=== PATIENT | male | born 1935 | race Caucasian/White ===

== ENCOUNTER 2018-08-02 16:36 | Inpatient (IN) | payer MEDICARE, OTHER, SELFPAY ==
[2018-08-02] VITALS (10 sets, daily range): BP systolic 159–185; BP diastolic 56–92; PULSE 60–70; RESP 15–21; TEMP 36.2–37.1; O2SAT 93–100; BMI 27.4; BMI 27.5; BMI 26.2
--- NOTE | 2018-08-02 16:47 | EKG12_ITS ---
Test Reason : Blood Pressure : / mmHG Vent. Rate : 062 BPM Atrial Rate : 062 BPM P-R Int : 112 ms QRS Dur : 168 ms QT Int : 492 ms P-R-T Axes : 062 228 082 degrees QTc Int : 499 ms Atrial-sensed ventricular-paced rhythm Abnormal ECG Confirmed by KELLIE KC, CELESTE ([id number]), editor city ROBERT URIBE ([id number]) on 08/04/2018 1:27:07 PM Referred By: ASPEN Confirmed By:CELESTE HOPKINS MD
--- NOTE | 2018-08-02 16:47 | CT_ITS ---
STUDY: CT BRAIN WITHOUT CONTRAST REASON FOR EXAM: Male, 83 years old. Weakness RADIATION DOSAGE (If Supplied By Facility): CTDIvol = ( 44.99 ) mGy, DLP = ( 762.36 ) mGycm TECHNIQUE: Transaxial CT imaging of the brain was performed without administration of intravenous contrast material. Coronal and sagittal 2-D MPR Individualized dose optimization techniques were used for this CT. COMPARISON: None. FINDINGS: There is mild mucoperiosteal thickening at the base of the left maxillary sinus, paranasal sinuses otherwise clear. Mastoid air cells and middle ear cavities clear. Craniofacial osseous structures normal. Extra cranial soft tissues including the orbital contents exhibit no acute process. Moderate symmetric expansion of lateral ventricles and mild symmetric expansion of extra-axial spaces consistent with age-related cerebral atrophy with mild and partially confluent chronic low-density changes in the periventricular white matter consistent with chronic microvascular ischemic disease with no evidence of acute bleed, mass or mass effect nor any specific evidence of acute territorial infarct. CT/Brain/Head without Contrast IMPRESSION: No acute intracranial process. Electronically Signed: Dustin Sandoval, at 17:44 EDT Tel , Service support ,
[2018-08-02 16:51] LABS: Bedside Glucose 93 mg/dL (70-110)
--- NOTE | 2018-08-02 17:25 | RAD_ITS ---
STUDY: X-RAY CHEST REASON FOR EXAM: Male, 83 years old. Shortness of breath. Broken ribs on the right side. TECHNIQUE: AP upright portable chest COMPARISON: None. FINDINGS: Left pectoral 3-lead AICD device. Low inspiratory volumes with elevated right hemidiaphragm and evidence of respiratory splinting on the right secondary to at least 4 mildly displaced rib fractures. Rib fractures are visible at the of the 6th through 9th ribs laterally. There is a small right effusion with moderate right lung base atelectasis. There is no pneumothorax. There are no infiltrates of the left lung. There is mild cardiomegaly. Unremarkable mediastinal silhouette, faye, pleural margins. No acute upper abdominal process. RAD/Chest 1 View IMPRESSION: Multiple right-sided rib fractures with small right effusion, moderate right lung base atelectasis, no pneumothorax. Electronically Signed: Dustin Sandoval, at 17:46 EDT Tel , Service support ,
[2018-08-02 17:29] LABS: Absolute Lymphocyte Count 1.06 X10^3/ul (0.83-4.51); Absolute Neutrophil Count 12.1 X10^3/uL (2.0-7.7); Basophil# 0.03 X10^3/uL; Basophil% 0.2 % (0-1); Eosinophil# 0.19 X10^3/uL; Eosinophils% 1.3 % (0-5); Hematocrit 42.5 % (40-54); Hemoglobin 12.7 g/dl (13.0-16.5); Lymphocyte # 1.06 X10^3/ul (4.0); Lymphocyte % 7.3 % (19-41); Mean Corp Hgb Conc 29.9 g/gl (32-36); Mean Corpuscular Volume 93.8 fL (80-94); Mean Platelet Vol. 10.2 fl (6.2-12.0); Monocyte# 1.09 X10^3/uL; Monocyte% 7.5 % (0-10); Neutrophil % 83.3 % (47-70); Platelet Count 238 K/mm3 (150-450); RBC Distribution Width CV 17.3 % (11.6-14.6); RBC Distribution Width SD 59.4 fl (35.1-43.9); Red Blood Count 4.53 M/mm3 (4.6-6.2); White Blood Count 14.5 K/mm3 (4.4-11.0)
[2018-08-02 17:30] LABS: POSITIVE COUNT NO; POSITIVE DIFFERENTIAL NO; POSITIVE MORPHOLOGY NO
[2018-08-02 17:36] LABS: International Normalized Ratio 1.2; Partial Thromboplast Time 35.5 Seconds (24.1-36.2); Prothrombin Time (Protime)PT. 15.5 SECONDS (11.7-14.9)
[2018-08-02 17:40] LABS: Anion Gap 6 (5-15); BUN 43 mg/dL (7-18); Calcium,Total 8.5 mg/dL (8.5-10.1); Chloride 102 mmol/L (98-107); Creatinine, Serum 2.68 mg/dL (0.70-1.30); EST Glomerular Filtration Rate 24 mL/min (>60); Est Glom Filt Rate - Afr Amer 29 mL/min (>60); Estimated Creatinine Clearance 22.24 ml/min; Glucose 88 mg/dL (74-106); Potassium 3.7 mmol/L (3.5-5.1); Sodium Level 137 mmol/L (136-145)
--- NOTE | 2018-08-02 17:42 | ED.VISSUMM ---
- ER Visit Summary Date of Service: 08/02/18 Chief Complaint: Expressive aphasia History of Present Illness: The patient is a 83 M presenting with expressive aphasia. Patient was at his doctor's office and suddenly developed expressive aphasia. This lasted approximately 5 minutes. He has not had these symptoms in the past. His symptoms are now resolved. Patient in May had a GI bleed and was treated at [facility]. At that time he was taken off of Xarelto. It was later restarted by his vamp seamer. On Tuesday he fell onto his right side and broke a rib. He was seen at [facility] at that time. At that time the decision was made to stop his Xarelto. He has been off Xarelto for 3 days. He denies chest pain or shortness of breath. Physical Examination: Vitals are stable. Patient is afebrile. Alert no acute distress. HEENT exam is unremarkable. Neck is supple. Lungs are clear and equal bilaterally. Ecchymosis right chest wall Heart is regular rate and rhythm. Abdomen is soft nontender nondistended. Extremities are unremarkable. Skin is warm and dry. No focal neurologic deficit. NIH 0 Remainder of exam is unremarkable. Emergency Department Course and Treatment: EKG is paced at rate of 62. Chest x-ray shows multiple right-sided rib fractures with small right effusion, moderate right lung base atelectasis, no pneumothorax. CBC white count of 14.5, hemoglobin 12.7. Chemistries show BUN 43, creatinine 2.68. INR is 1.2. Troponin is negative. CT head shows no acute process. Will discuss with the hospitalist for admission. Disposition: Admission Impression: Expressive aphasia, TIA This note was generated with [employer] dictation software. It may contain incorrect words, spelling, and punctuation that were not noted in review of the chart prior to signing ED Disposition - Plan for ED Patient: Chief Complaint: Neuro S/Sx Referrals: Blair Perez MD [Primary Care Provider] -
[2018-08-02] MEDS: Morphine 4 MG/ML Syringe IV (18:04)
[2018-08-02] MEDS: Ondansetron 4 MG/2 ML Vial IV (18:04)
--- NOTE | 2018-08-02 18:47 | PCM.HP.STD ---
Problem List (1) Expressive aphasia Status: Acute History of Present Illness Date of Admission: 08/02/18 Chief Complaint: expressive aphasia The patient is a 83 year old M with a PMH of Afib who was admitted with a complaint of expressive aphasia. Patient was in his PCP's office today when he suddenly lost the ability to speak for about 5 mins. This has never happened to him before. He had a GI bleed a few months ago and his xarelto was stopped. It was subsequently started again by his caddy master. He fell at home ~ 3 days ago and sustained bruising over his right ribs and some fractured ribs. He then went to his PCP's office today for the rib fractures and had the expressive aphasia. He denied any associated lightheadedness, dizziness, palpitations, shortness of breath, orthopnea or PND. HE denied any focal weakness, any chest pain, diarrhea vomiting. Review of systems was otherwise negative. CT head done in the ED was negative. HE is being admitted to be managed for TIA. [] Past Medical History Allergies TRUNG Inhibitors Allergy (Verified 08/02/18 16:44) Swelling hydralazine Allergy (Verified 08/02/18 16:44) Itching pneumococcal vaccine [From Pneumovax 23] Allergy (Verified 08/02/18 16:44) Hives ferrous sulfate Adverse Reaction (Verified 08/02/18 16:44) Nausea/Vom/Diarrhea Home Medications: Ambulatory Orders Medication Instructions Recorded Allopurinol [Zyloprim] 100 mg PO DAILYCM 08/02/18 Amiodarone HCl [Cordarone] 200 mg PO DAILY 08/02/18 Aspirin [Aspirin, Baby] 81 mg PO DAILY@0800 08/02/18 Calcitriol [Rocaltrol] 0.25 mcg PO DAILY 08/02/18 Carvedilol 25 mg PO DAILY 08/02/18 Cholecalciferol (VIT D3) [Vitamin 2,000 unit PO DAILY 08/02/18 D] Citalopram [Celexa] 20 mg PO DAILY 08/02/18 Cyanocobalamin (Vitamin B-12) 2,000 mcg PO TUFR 08/02/18 [Vitamin B-12] Finasteride [Proscar] 5 mg PO DAILY 08/02/18 Lovastatin [Altoprev] 40 mg PO DAILY 08/02/18 Oxybutynin [Ditropan] 5 mg PO DAILY 08/02/18 Oxycodone HCl/Acetaminophen 1 tablet PO Q4H PRN PRN 08/02/18 [Percocet 5/325] Pantoprazole Sodium [Protonix] 40 mg PO DAILY 08/02/18 Rivaroxaban [Xarelto] 15 mg PO DAILY 08/02/18 Tadalafil [Cialis] 20 mg PO PRN PRN 08/02/18 Torsemide [Demadex] 20 mg PO DAILY 08/02/18 Surgical History: - - has pacemaker in place Psychiatric History: No pertinent psych hx Lives: With Family Smoking Status: Former smoker Alcohol: None Drugs: None - *Family History Maternal History Items: No pertinent history Paternal History Items: No pertinent history Review of Systems Constitutional: Denies: Chills, Fever, Malaise, Weight Change Eyes: Denies: Blurred vision, Vision Change HEENT: Denies: Head Aches, Sinus Congestion, Sinus Drainage Cardiovascular: Denies: Chest Pain, Palpitations Respiratory: Denies: Cough, Shortness of Breath, Shortness of breath at rest, Sputum production Gastrointestinal: Denies: Abdominal Pain, Nausea, Vomiting Genitourinary: Denies: Dysuria Musculoskeletal: Reports: - - right rib pain and bruising due to fall. Denies: Joint Pain, Joint Tenderness Skin: Denies: Rash, Wounds Neurological: Reports: Change in Speech. Denies: Focal weakness, Numbness, Tingling Psychiatric: Denies: Anxiety, Depression, Homicidal Ideations, Suicidal Ideations Hematologic/ Lymphatic: Denies: Easy Bruising, Easy Bleeding VTE Information - Inpt Only VTE Present on Admission: No VTE Pharm Prophylaxis ordered?: Yes Patient Problems: Active and Suspected Problems Expressive aphasia (Acute) - Physical Exam General: Alert, Oriented x3, Cooperative, No apparent distress HEENT: Atraumatic, PERRLA, EOMI, Normocephalic Oral: Moist Mucosa Neck: Supple, No JVD, Negative Carotid Bruits Lungs: Clear to auscultation, Normal air movement, No rhonchi, No wheeze, No rales Cardiovascular: Regular rate, Regular Rhythm, Normal S1, Normal S2, No murmurs Abdomen: Bowel Sounds Present, Soft, Non Tender, Non-Distended, No Hepato-splenomegaly Extremities: No clubbing, No cyanosis, No edema, Capillary Refill Less than 3 Seconds, Tenderness Skin: No rashes, No breakdown, - - resolving bruise over right ribs Musculoskeletal: Tenderness - over right ribs Lymphatic: No Cervical, Supraclavicular, or Inguinal Adenopathy Neurological: Cranial nerves II-XII grossly intact, Neuro grossly intact, Motor Exam 5/5 strength throughout Psych/Mental Status: Normal Affect, Appropriate, Alert and oriented to time, place, person, mood and affect Vital Signs Temp Pulse Resp BP Pulse Ox 97.1 F L 63 17 183/70 H 96 08/02/18 16:37 08/02/18 18:09 08/02/18 18:09 08/02/18 18:09 08/02/18 18:09 Oxygen Delivery Method Room Air Weight: 196 lb 13.965 oz Body Mass Index (BMI) 27.4 Finger Stick Blood Glucose 93 Laboratory Tests Past 24 Hrs 08/02/18 08/02/18 08/02/18 17:05 17:05 17:05 WBC 14.5 H RBC 4.53 L Hgb 12.7 L Hct 42.5 MCV 93.8 MCH 28.0 MCHC 29.9 L RDW 17.3 H RDW Differential 59.4 H Plt Count 238 MPV 10.2 Immature Gran % (Auto) 0.400 Neut % (Auto) 83.3 H Lymph % (Auto) 7.3 L [place] % (Auto) 7.5 Eos % (Auto) 1.3 Baso % (Auto) 0.2 Absolute Neuts (auto) 12.1 H Absolute Lymphs (auto) 1.06 Total Counted Not Reportable PT 15.5 H INR 1.2 APTT 35.5 Sodium 137 Potassium 3.7 Chloride 102 Carbon Dioxide 29.0 Anion Gap 6 BUN 43 H Creatinine 2.68 H Estim Creat Clear Calc 22.24 Est GFR (MDRD) Af Amer 29 L Est GFR (MDRD) Non-Af 24 L BUN/Creatinine Ratio 16.0 Glucose 88 Calcium 8.5 Troponin I < 0.015 POC Glucose 08/02/18 16:46 POC Glucose [address] 08/02/18 16:47 IMPRESSION: No acute intracranial process. Electronically Signed: Dustin Sandoval, at 17:44 EDT Tel , Service support , Chest X-Ray 08/02/18 17:25 IMPRESSION: Multiple right-sided rib fractures with small right effusion, moderate right lung base atelectasis, no pneumothorax. Electronically Signed: Dustin Sandoval, at 17:46 EDT Tel , Service support , Assessment/Plan All Active Problems Expressive aphasia (Acute) 83-year-old male presenting with a history of expressive aphasia 1. TIA had 5 min episode of expressive aphasia in his PCP's office today NIHSS-0; aphasia had resolved at time of review. admit to PCU with telemetry CT head was negative; EKG showed no acute ST changes and showed possible pacemaker failure Brain MRI and MRA head and neck 2D echo neurology consult Patient counseled that it is advisable to keep him off of Eliquis in light of his history of GI bleed and history of falls. He does have a risk of stroke and I counseled him about this. To follow up with his caddy master for final decision to be made. A1C, lipid panel keep BP <130/80 on aspirin. will continue. On lovastatin. Will switch to atorvastatin 40mg qhs family asked to bring pacemaker paperwork tomorrow to see if it is MRI compatible 2. Hypertension: Poorly controlled. BP elevated at 183/70. He is not sure that he took his medications today or not. His son states he took some of the medications as the package for him but did not take some of the sensor is not sure which ones he took. Will resume BP meds. IV hydralazine 10 mg every 6 as needed 3. ?YANDY: Cr is 2.68. Baseline not known. Will hydrate gently with 1/2 NS and monitor 4. Rib fractures: had a fall 3 days ago at home. Chest x-ray showed multiple right rib fractures with small pleural effusion. Percocet for pain. Fall precautions. continue aspirin 5. Afib: on cavedilol and amiodarone. Will hold Xarelto in light of frequent falls. 6. BPH: On finasteride Depression: on celexa DVT prophylaxis: SCDs; no anticoagulation o/a of frequent falls CODE STATUS: Full code Patient And his son counseled about different types of CODE STATUS namely difference between full code, DNR CC and DNR CCA. Patient elects to be full code. total face to face time - 18 mins. Code Visit OBSV E&M: 15591 Initial observation care L3 Procedures: 76849 Advncd Care Plan 30 Min
--- NOTE | 2018-08-02 18:59 | HP.PCM_ITS ---
Problem List (1) Expressive aphasia Status: Acute History of Present Illness Date of Admission: 08/02/18 Chief Complaint: expressive aphasia The patient is a 83 year old M with a PMH of Afib who was admitted with a complaint of expressive aphasia. Patient was in his PCP's office today when he suddenly lost the ability to speak for about 5 mins. This has never happened to him before. He had a GI bleed a few months ago and his xarelto was stopped. It was subsequently started again by his electrical wirer. He fell at home ~ 3 days ago and sustained bruising over his right ribs and some fractured ribs. He then went to his PCP's office today for the rib fractures and had the expressive aphasia. He denied any associated lightheadedness, dizziness, palpitations, shortness of breath, orthopnea or PND. HE denied any focal weakness, any chest pain, diarrhea vomiting. Review of systems was otherwise negative. CT head done in the ED was negative. HE is being admitted to be managed for TIA. [] Past Medical History Allergies TRUNG Inhibitors Allergy (Verified 08/02/18 16:44) Swelling hydralazine Allergy (Verified 08/02/18 16:44) Itching pneumococcal vaccine [From Pneumovax 23] Allergy (Verified 08/02/18 16:44) Hives ferrous sulfate Adverse Reaction (Verified 08/02/18 16:44) Nausea/Vom/Diarrhea Home Medications: Ambulatory Orders Medication Instructions Recorded Allopurinol [Zyloprim] 100 mg PO DAILYCM 08/02/18 Amiodarone HCl [Cordarone] 200 mg PO DAILY 08/02/18 Aspirin [Aspirin, Baby] 81 mg PO DAILY@0800 08/02/18 Calcitriol [Rocaltrol] 0.25 mcg PO DAILY 08/02/18 Carvedilol 25 mg PO DAILY 08/02/18 Cholecalciferol (VIT D3) [Vitamin 2,000 unit PO DAILY 08/02/18 D] Citalopram [Celexa] 20 mg PO DAILY 08/02/18 Cyanocobalamin (Vitamin B-12) 2,000 mcg PO TUFR 08/02/18 [Vitamin B-12] Finasteride [Proscar] 5 mg PO DAILY 08/02/18 Lovastatin [Altoprev] 40 mg PO DAILY 08/02/18 Oxybutynin [Ditropan] 5 mg PO DAILY 08/02/18 Oxycodone HCl/Acetaminophen 1 tablet PO Q4H PRN PRN 08/02/18 [Percocet 5/325] Pantoprazole Sodium [Protonix] 40 mg PO DAILY 08/02/18 Rivaroxaban [Xarelto] 15 mg PO DAILY 08/02/18 Tadalafil [Cialis] 20 mg PO PRN PRN 08/02/18 Torsemide [Demadex] 20 mg PO DAILY 08/02/18 Surgical History: - - has pacemaker in place Psychiatric History: No pertinent psych hx Lives: With Family Smoking Status: Former smoker Alcohol: None Drugs: None - *Family History Maternal History Items: No pertinent history Paternal History Items: No pertinent history Review of Systems Constitutional: Denies: Chills, Fever, Malaise, Weight Change Eyes: Denies: Blurred vision, Vision Change HEENT: Denies: Head Aches, Sinus Congestion, Sinus Drainage Cardiovascular: Denies: Chest Pain, Palpitations Respiratory: Denies: Cough, Shortness of Breath, Shortness of breath at rest, Sputum production Gastrointestinal: Denies: Abdominal Pain, Nausea, Vomiting Genitourinary: Denies: Dysuria Musculoskeletal: Reports: - - right rib pain and bruising due to fall. Denies: Joint Pain, Joint Tenderness Skin: Denies: Rash, Wounds Neurological: Reports: Change in Speech. Denies: Focal weakness, Numbness, Tingling Psychiatric: Denies: Anxiety, Depression, Homicidal Ideations, Suicidal Ideations Hematologic/ Lymphatic: Denies: Easy Bruising, Easy Bleeding VTE Information - Inpt Only VTE Present on Admission: No VTE Pharm Prophylaxis ordered?: Yes Patient Problems: Active and Suspected Problems Expressive aphasia (Acute) - Physical Exam General: Alert, Oriented x3, Cooperative, No apparent distress HEENT: Atraumatic, PERRLA, EOMI, Normocephalic Oral: Moist Mucosa Neck: Supple, No JVD, Negative Carotid Bruits Lungs: Clear to auscultation, Normal air movement, No rhonchi, No wheeze, No rales Cardiovascular: Regular rate, Regular Rhythm, Normal S1, Normal S2, No murmurs Abdomen: Bowel Sounds Present, Soft, Non Tender, Non-Distended, No Hepato- splenomegaly Extremities: No clubbing, No cyanosis, No edema, Capillary Refill Less than 3 Seconds, Tenderness Skin: No rashes, No breakdown, - - resolving bruise over right ribs Musculoskeletal: Tenderness - over right ribs Lymphatic: No Cervical, Supraclavicular, or Inguinal Adenopathy Neurological: Cranial nerves II-XII grossly intact, Neuro grossly intact, Motor Exam 5/5 strength throughout Psych/Mental Status: Normal Affect, Appropriate, Alert and oriented to time, place, person, mood and affect Vital Signs Temp Pulse Resp BP Pulse Ox 97.1 F L 63 17 183/70 H 96 08/02/18 16:37 08/02/18 18:09 08/02/18 18:09 08/02/18 18:09 08/02/18 18:09 Oxygen Delivery Method Room Air Weight: 196 lb 13.965 oz Body Mass Index (BMI) 27.4 Finger Stick Blood Glucose 93 Laboratory Tests Past 24 Hrs 08/02/18 08/02/18 08/02/18 17:05 17:05 17:05 WBC 14.5 H RBC 4.53 L Hgb 12.7 L Hct 42.5 MCV 93.8 MCH 28.0 MCHC 29.9 L RDW 17.3 H RDW Differential 59.4 H Plt Count 238 MPV 10.2 Immature Gran % (Auto) 0.400 Neut % (Auto) 83.3 H Lymph % (Auto) 7.3 L [place] % (Auto) 7.5 Eos % (Auto) 1.3 Baso % (Auto) 0.2 Absolute Neuts (auto) 12.1 H Absolute Lymphs (auto) 1.06 Total Counted Not Reportable PT 15.5 H INR 1.2 APTT 35.5 Sodium 137 Potassium 3.7 Chloride 102 Carbon Dioxide 29.0 Anion Gap 6 BUN 43 H Creatinine 2.68 H Estim Creat Clear Calc 22.24 Est GFR (MDRD) Af Amer 29 L Est GFR (MDRD) Non-Af 24 L BUN/Creatinine Ratio 16.0 Glucose 88 Calcium 8.5 Troponin I < 0.015 POC Glucose 08/02/18 16:46 POC Glucose [address] 08/02/18 16:47 IMPRESSION: No acute intracranial process. Electronically Signed: Dustin Sandoval, at 17:44 EDT Tel , Service support , Chest X-Ray 08/02/18 17:25 IMPRESSION: Multiple right-sided rib fractures with small right effusion, moderate right lung base atelectasis, no pneumothorax. Electronically Signed: Dustin Sandoval, at 17:46 EDT Tel , Service support , Assessment/Plan All Active Problems Expressive aphasia (Acute) 83-year-old male presenting with a history of expressive aphasia 1. TIA * had 5 min episode of expressive aphasia in his PCP's office today * NIHSS-0; aphasia had resolved at time of review. * admit to PCU with telemetry * CT head was negative; EKG showed no acute ST changes and showed possible pacemaker failure * Brain MRI and MRA head and neck * 2D echo * neurology consult * Patient counseled that it is advisable to keep him off of Eliquis in light of his history of GI bleed and history of falls. He does have a risk of stroke and I counseled him about this. To follow up with his electrical wirer for final decision to be made. * A1C, lipid panel * keep BP <130/80 * on aspirin. will continue. On lovastatin. Will switch to atorvastatin 40mg qhs * family asked to bring pacemaker paperwork tomorrow to see if it is MRI compatible * 2. Hypertension: * Poorly controlled. BP elevated at 183/70. * He is not sure that he took his medications today or not. * His son states he took some of the medications as the package for him but did not take some of the sensor is not sure which ones he took. * Will resume BP meds. IV hydralazine 10 mg every 6 as needed * 3. ?YANDY: Cr is 2.68. Baseline not known. Will hydrate gently with 1/2 NS and monitor 4. Rib fractures: * had a fall 3 days ago at home. Chest x-ray showed multiple right rib fractures with small pleural effusion. * Percocet for pain. * Fall precautions. continue aspirin * 5. Afib: on cavedilol and amiodarone. Will hold Xarelto in light of frequent falls. 6. BPH: On finasteride Depression: on celexa DVT prophylaxis: SCDs; no anticoagulation o/a of frequent falls CODE STATUS: Full code * Patient And his son counseled about different types of CODE STATUS namely difference between full code, DNR CC and DNR CCA. Patient elects to be full code. total face to face time - 18 mins. Code Visit OBSV E&M: 46140 Initial observation care L3 Procedures: 27200 Advncd Care Plan 30 Min
[2018-08-02] MEDS: Atorvastatin Calcium 40 MG Tablet PO (21:28)
[2018-08-02] MEDS: 0.9% NaCl Peripheral Flush Adult/Peds IV (21:28)
[2018-08-02] MEDS: Carvedilol 12.5 MG Tablet PO (21:28)
[2018-08-02 22:00] LABS: Hemoglobin A1c 5.9 % (4.2-6.3)
[2018-08-03] VITALS (15 sets, daily range): BP systolic 138–162; BP diastolic 57–88; PULSE 61–71; RESP 12–20; TEMP 36.4–36.9; O2SAT 86–95; BMI 26.2
[2018-08-03] MEDS: 0.9% NaCl Peripheral Flush Adult/Peds IV (03:54)
[2018-08-03] MEDS: oxyCODONE 5 MG Tablet 1 MG PO (03:55)
[2018-08-03 06:44] LABS: Absolute Neutrophil Count 12.9 X10^3/uL (2.0-7.7); Basophil# 0.02 X10^3/uL; Basophil% 0.1 % (0-1); Eosinophil# 0.22 X10^3/uL; Eosinophils% 1.5 % (0-5); Hematocrit 41.6 % (40-54); Hemoglobin 12.6 g/dl (13.0-16.5); Lymphocyte % 5.4 % (19-41); Mean Corp Hgb Conc 30.3 g/gl (32-36); Mean Corpuscular Hgb 28.4 pg (27.0-32.0); Mean Corpuscular Volume 93.9 fL (80-94); Mean Platelet Vol. 10.6 fl (6.2-12.0); Monocyte# 0.96 X10^3/uL; Monocyte% 6.4 % (0-10); Neutrophil # 12.87 X10^3/uL (2.7-7.7); Neutrophil % 86.3 % (47-70); Platelet Count 238 K/mm3 (150-450); RBC Distribution Width CV 17.1 % (11.6-14.6); RBC Distribution Width SD 58.8 fl (35.1-43.9); Red Blood Count 4.43 M/mm3 (4.6-6.2); White Blood Count 14.9 K/mm3 (4.4-11.0)
[2018-08-03 06:59] LABS: POSITIVE COUNT NO; POSITIVE DIFFERENTIAL NO; POSITIVE MORPHOLOGY NO
[2018-08-03 07:22] LABS: Anion Gap 11 (5-15); BUN 46 mg/dL (7-18); Calcium,Total 8.5 mg/dL (8.5-10.1); Chloride 102 mmol/L (98-107); Cholesterol 139 mg/dL (200); Creatinine, Serum 2.71 mg/dL (0.70-1.30); EST Glomerular Filtration Rate 24 mL/min (>60); Est Glom Filt Rate - Afr Amer 29 mL/min (>60); Glucose 88 mg/dL (74-106); High Density Lipoprotein 45 mg/dL; Potassium 3.7 mmol/L (3.5-5.1); Sodium Level 140 mmol/L (136-145); Triglycerides 91 mg/dL; Very Low Density Lipoprotein 18 mg/dL (5-40)
[2018-08-03] MEDS: oxyCODONE 5 MG Tablet PO ×3 (07:36→21:01)
--- NOTE | 2018-08-03 08:00 | ECHOD_ITS ---
[id number] ECHO^ECHOD^Echo Complete [id number] TAG_START Cardiovascular Services Echocardiogram [address] [place], [place] [address] Ordering Physician: Cathie Suarez TAG_ENDED TAG_START Name: CHACHA HAIR Study Date: 08/03/2018 08:41 AM BP: 162/57 mmHg Patient Location: [facility]^[id number]^1 BSA: 2.0 m2 : 1935 Gender: Male Height: 71 in Age: 83 yrs Ethnicity: C Weight: 187 lb History: AFIB, Pacemaker, Former smoker, HTN TAG_ENDED Reason For Study: EMBOLI Procedure This was a 2D Doppler, Color Flow transthoracic echocardiogram. Exam performed portable in patient room. Left Ventricle Moderately dilated left ventricle. The estimated ejection fraction is 30 %. Stage 2 diastolic dysfunction. No regional wall motion abnormalities noted. TAG_START TAG_ENDED Right Ventricle Moderately dilated right ventricle. ICD or pacer leads identified within the right ventricle. Mild global right ventricular systolic dysfunction. Atria The left atrium is moderately enlarged. Normal right atrium. ICD or pacer leads identified within the right atrium. Normal atrial septum. Bubble contrast study negative for right to left interatrial shunt. Mitral Valve Mild diffuse mitral valve thickening. Mild mitral annular calcification extending into the posterior leaflet. Mild (1+) mitral valve insufficiency. Tricuspid Valve Normal tricuspid valve. Moderate (2+) tricuspid valve insufficiency. Right ventricular systolic pressure estimated to be 68 mmHg. Severe pulmonary hypertension. Aortic Valve Trisinus/trileaflet aortic valve. Mild diffuse aortic valve thickening. Mild restriction of the aortic valve. Mild aortic stenosis. Peak aortic valve gradient 14 mmHg. Mean aortic valve gradient 9 mmHg. Trivial aortic valve insufficiency. Pulmonic Valve Normal pulmonic valve. Trivial pulmonic valve insufficiency. Great Vessels Normal aortic root. Normal arch. Normal inferior vena cava. Inferior vena cava collapse with sniff. Pericardium/Pleural No pericardial effusion. Medication Performed a rapid injection of agitated mix of 9 cc saline and 1cc air to assess for atrial septal defect. Bubble study (x 3 ) was indeterminate. MMode/2D Measurements & Calculations IVSd: 1.2 cm LVIDd: 5.0 cm FS: 21.0 % LVIDs: 4.0 cm LVPWd: 1.4 cm Ao root diam: 4.1 cm LVAd ap4: 40.4 cm2 SV(MOD-sp4): 74.4 ml LA dimension: 5.0 cm EDV(MOD-sp4): 149.6 ml EDV(sp4-el): 161.2 ml LVAs ap4: 25.7 cm2 ESV(MOD-sp4): 75.2 ml ESV(sp4-el): 77.6 ml EF(MOD-sp4): 49.7 % EF(sp4-el): 51.8 % SV(sp4-el): 83.6 ml Doppler Measurements & Calculations MV E max robby: 66.6 cm/sec MV V2 max: 94.8 cm/sec MV dec time: 0.21 sec MV A max robby: 45.9 cm/sec MV max P.6 mmHg MV E/A: 1.5 MV V2 mean: 41.6 cm/sec MV mean P.86 mmHg MV V2 VTI: 25.3 cm Ao V2 max: 187.6 cm/sec AI max robby: 381.6 cm/sec LV V1 max P.0 mmHg Ao max P.1 mmHg AI max P.4 mmHg LV V1 mean P.6 mmHg Ao V2 mean: 133.0 cm/sec AI dec slope: 249.5 cm/sec2 LV V1 max: 86.9 cm/sec Ao mean P.9 mmHg AI P1/2t: 448.0 msec LV V1 mean: 60.7 cm/sec Ao V2 VTI: 36.6 cm LV V1 VTI: 19.6 cm PA V2 max: 144.7 cm/sec PI end-d robby: 133.5 cm/sec TR max robby: 394.7 cm/sec TR max P.9 mmHg Pediatric Measurements & Calculations Lat Peak E' Robby: 9.1 cm/sec Med Peak E' Robby: 3.9 cm/sec Interpretation Summary Moderately dilated left ventricle. The estimated ejection fraction is 30 %. Stage 2 diastolic dysfunction. Moderately dilated right ventricle. Mild global right ventricular systolic dysfunction. The left atrium is moderately enlarged. Moderate (2+) tricuspid valve insufficiency. Right ventricular systolic pressure estimated to be 68 mmHg. Severe pulmonary hypertension. Bubble contrast study negative for right to left interatrial shunt. Possible accessory chordae tendonae seen in LV of no clinical significance. TAG_START TAG_ENDED Ordering Physician: Cathie Suarez Referring Physician: BENEDICT HENRIQUEZ Performed By: Meggan Blackwell, RADHACS, RVT
[2018-08-03] MEDS: Amiodarone 200 MG Tablet PO (09:50)
[2018-08-03] MEDS: Aspirin 81 MG TAB.CHEW PO (09:50)
[2018-08-03] MEDS: Allopurinol 100 MG Tablet PO (09:50)
[2018-08-03] MEDS: Citalopram 20 MG Tablet PO (09:50)
[2018-08-03] MEDS: Furosemide 40 MG Tablet PO (09:51)
[2018-08-03] MEDS: Finasteride 5 MG Tablet PO (09:51)
[2018-08-03] MEDS: Tolterodine Tartrate 2 MG CAP.SA PO (09:51)
[2018-08-03] MEDS: Pantoprazole Sodium 40 MG Tablet PO (09:51)
[2018-08-03] MEDS: Carvedilol 12.5 MG Tablet PO ×2 (09:51→21:02)
[2018-08-03] MEDS: Calcitriol 0.25 MCG Capsule PO (09:52)
--- NOTE | 2018-08-03 09:56 | PCM.CONS.GEN ---
Reason for Consult Date of Consultation: 08/03/18 Reason for Consultation: aphasia, resolved History of Present Illness: The patient is a 83 year old M presented after 5 min episode of language abnormality witnessed by son while in mds office, now resolved, feels normal now. no trigger. broken rib 4 days ago, was given percocet, the last of which was taken yesterday at noon. symptoms occurred at 430pm. previously on xarelto, stopped tuesday 4 days ago per son due to blood somewhere associated with rib fx. history of afib. rib fx due to fall, tripped going out the door, has had falls before, approx once qomonth. per admit h&p:The patient is a 83 year old M with a PMH of Afib who was admitted with a complaint of expressive aphasia. Patient was in his PCP's office today when he suddenly lost the ability to speak for about 5 mins. This has never happened to him before. He had a GI bleed a few months ago and his xarelto was stopped. It was subsequently started again by his data collection associate. He fell at home ~ 3 days ago and sustained bruising over his right ribs and some fractured ribs. He then went to his PCP's office today for the rib fractures and had the expressive aphasia. He denied any associated lightheadedness, dizziness, palpitations, shortness of breath, orthopnea or PND. HE denied any focal weakness, any chest pain, diarrhea vomiting. Review of systems was otherwise negative. CT head done in the ED was negative. HE is being admitted to be managed for TIA. Past Medical History Allergies TRUNG Inhibitors Allergy (Verified 08/02/18 16:44) Swelling hydralazine Allergy (Verified 08/02/18 16:44) Itching pneumococcal vaccine [From Pneumovax 23] Allergy (Verified 08/02/18 16:44) Hives ferrous sulfate Adverse Reaction (Verified 08/02/18 16:44) Nausea/Vom/Diarrhea Home Medications: Ambulatory Orders Medication Instructions Recorded Allopurinol [Zyloprim] 100 mg PO DAILYCM 08/02/18 Amiodarone HCl [Cordarone] 200 mg PO DAILY 08/02/18 Aspirin [Aspirin, Baby] 81 mg PO DAILY@0800 08/02/18 Calcitriol [Rocaltrol] 0.25 mcg PO DAILY 08/02/18 Carvedilol 25 mg PO DAILY 08/02/18 Cholecalciferol (VIT D3) [Vitamin 2,000 unit PO DAILY 08/02/18 D] Citalopram [Celexa] 20 mg PO DAILY 08/02/18 Cyanocobalamin (Vitamin B-12) 2,000 mcg PO TUFR 08/02/18 [Vitamin B-12] Finasteride [Proscar] 5 mg PO DAILY 08/02/18 Lovastatin [Altoprev] 40 mg PO DAILY 08/02/18 Oxybutynin [Ditropan] 5 mg PO DAILY 08/02/18 Oxycodone HCl/Acetaminophen 1 tablet PO Q4H PRN PRN 08/02/18 [Percocet 5/325] Pantoprazole Sodium [Protonix] 40 mg PO DAILY 08/02/18 Rivaroxaban [Xarelto] 15 mg PO DAILY 08/02/18 Tadalafil [Cialis] 20 mg PO PRN PRN 08/02/18 Torsemide [Demadex] 20 mg PO DAILY 08/02/18 Surgical History: - - has pacemaker in place Psychiatric History: No pertinent psych hx Lives: With Family Smoking Status: Former smoker Tobacco Use: Cigarettes Alcohol: None Drugs: None - *Family History Maternal History Items: No pertinent history Paternal History Items: No pertinent history Review of Systems Constitutional: Denies: Chills, Fever, Weight Change HEENT: Denies: Head Aches, Sinus Congestion, Sinus Drainage Cardiovascular: Denies: Chest Pain, Palpitations Respiratory: Denies: Cough, Shortness of breath at rest, Sputum production Gastrointestinal: Denies: Abdominal Pain, Nausea, Vomiting Genitourinary: Denies: Dysuria Musculoskeletal: Denies: Joint Pain, Joint Tenderness Skin: Denies: Rash, Wounds Neurological: Denies: Numbness, Tingling, Focal weakness Psychiatric: Denies: Anxiety, Depression, Homicidal Ideations, Suicidal Ideations Hematologic/ Lymphatic: Denies: Easy Bruising, Easy Bleeding Patient Problems: Active and Suspected Problems Expressive aphasia (Acute) - Physical Exam General: Alert, Oriented x3, Cooperative, No apparent distress Neurological: Cranial nerves II-XII grossly intact, Deep Tendon Reflexes 2+/4 and Symmetrical, Neuro grossly intact, Motor Exam 5/5 strength throughout Psych/Mental Status: Normal Affect Vital Signs Temp Pulse Resp BP Pulse Ox 36.4 C L 63 12 154/88 H 93 08/03/18 09:05 08/03/18 09:05 08/03/18 09:05 08/03/18 09:05 08/03/18 09:05 Oxygen Flow Rate (L/min) 2 Oxygen Delivery Method Room Air Weight: 85.1 kg Body Mass Index (BMI) 26.2 Finger Stick Blood Glucose 93 Intake and Output for Last 24 Hours 08/01/18 08/02/18 08/03/18 23:59 23:59 23:59 Intake Total 700 / 700 Balance 700 / 700 Laboratory Tests Past 24 Hrs 08/02/18 08/02/18 08/02/18 17:05 17:05 17:05 WBC 14.5 H RBC 4.53 L Hgb 12.7 L Hct 42.5 MCV 93.8 MCH 28.0 MCHC 29.9 L RDW 17.3 H RDW Differential 59.4 H Plt Count 238 MPV 10.2 Immature Gran % (Auto) 0.400 Neut % (Auto) 83.3 H Lymph % (Auto) 7.3 L [place] % (Auto) 7.5 Eos % (Auto) 1.3 Baso % (Auto) 0.2 Absolute Neuts (auto) 12.1 H Absolute Lymphs (auto) 1.06 Total Counted Not Reportable PT 15.5 H INR 1.2 APTT 35.5 Sodium 137 Potassium 3.7 Chloride 102 Carbon Dioxide 29.0 Anion Gap 6 BUN 43 H Creatinine 2.68 H Estim Creat Clear Calc 22.24 Est GFR (MDRD) Af Amer 29 L Est GFR (MDRD) Non-Af 24 L BUN/Creatinine Ratio 16.0 Glucose 88 Hemoglobin A1c Calcium 8.5 Troponin I < 0.015 Triglycerides Cholesterol LDL Cholesterol VLDL Cholesterol HDL Cholesterol 08/02/18 08/03/18 08/03/18 17:05 05:47 05:47 WBC 14.9 H RBC 4.43 L Hgb 12.6 L Hct 41.6 MCV 93.9 MCH 28.4 MCHC 30.3 L RDW 17.1 H RDW Differential 58.8 H Plt Count 238 MPV 10.6 Immature Gran % (Auto) 0.300 Neut % (Auto) 86.3 H Lymph % (Auto) 5.4 L [place] % (Auto) 6.4 Eos % (Auto) 1.5 Baso % (Auto) 0.1 Absolute Neuts (auto) 12.9 H Absolute Lymphs (auto) 0.80 L Total Counted Not Reportable PT INR APTT Sodium 140 Potassium 3.7 Chloride 102 Carbon Dioxide 27.0 Anion Gap 11 BUN 46 H Creatinine 2.71 H Estim Creat Clear Calc 22.00 Est GFR (MDRD) Af Amer 29 L Est GFR (MDRD) Non-Af 24 L BUN/Creatinine Ratio 17.0 Glucose 88 Hemoglobin A1c 5.9 Calcium 8.5 Troponin I Triglycerides 91 Cholesterol 139 LDL Cholesterol 76 VLDL Cholesterol 18 HDL Cholesterol 45 POC Glucose 08/02/18 16:[address] brain reviewed, he does have atrophy I do not see anything acute but his orbits are conjugately deviated to the left Assessment/Plan All Active Problems Expressive aphasia (Acute) tia vs med effect await mri if feasible (pacer, ?mri compatible) ?restart xarelto regardless. history of ugibleed, repaired by [place] publicity writer per son.
--- NOTE | 2018-08-03 10:31 | CDU_ITS ---
[id number] VL^CDU^Carotid Duplex Ultrasound [id number] TAG_START Cardiovascular Services Carotid Duplex Ultrasound [facility] [place] [address] Ordering Physician: Nicolas Guerrero TAG_ENDED TAG_START Name: CHACHA HAIR Study Date: 08/03/2018 12:51 PM Patient Location: U^[id number]^1 : 1935 Gender: Male Age: 83 yrs Ethnicity: C TAG_ENDED Reason For Study: TIA Rt. Velocities/BP Lt. Velocities/BP Prox CCA 63.1/7.01 cm/sec. Prox CCA 90.3/5.86 cm/sec. Mid CCA 57.5/8.79 cm/sec. Mid CCA 65.7/8.79 cm/sec. Dist CCA 91.5/7.04 cm/sec. Dist CCA 56.3/8.21 cm/sec. Prox ICA 140/16.7 cm/sec. Prox ICA 58/8.21 cm/sec. Mid ICA 125/22.6 cm/sec. Mid ICA 67.5/11.8 cm/sec. Dist ICA 95.1/14.1 cm/sec. Dist ICA 94.4/14.1 cm/sec. Rt. ICA/CCA = 2.22. Lt. ICA/CCA = 1.44. Prox ECA 142 cm/sec. Prox ECA 106 cm/sec. Rt. Vert. 35/7.86 cm/sec. Lt. Vert. 86.2/9.38 cm/sec. Right Extracranial There is intimal thickening but no significant atherosclerotic plaque noted in the right common carotid artery. There is heterogeneous, irregular atherosclerotic plaque noted in the right internal carotid artery. There is intimal thickening but no significant atherosclerotic plaque noted in the right external carotid artery. Antegrade flow is noted in the right vertebral artery. There is heterogeneous, smooth atherosclerotic plaque noted in the right bulb. Left Extracranial There is intimal thickening but no significant atherosclerotic plaque noted in the left common carotid artery. There is heterogeneous, irregular atherosclerotic plaque noted in the left internal carotid artery. There is intimal thickening but no significant atherosclerotic plaque noted in the left external carotid artery. Antegrade flow is noted in the left vertebral artery. Procedure Carotid Duplex [id number]. Exam performed portable in patient room. Interpretation Summary Soft plague at the proximal right internal carotid with 50-69% stenosis. Minimal plague at the proximal left internal carotid with <50% stenosis. Mild disease right external carotid Normal flow left external carotid Patent and antegrade vertebrals bilaterally TAG_START TAG_ENDED Ordering Physician: Nicolas Guerrero Referring Physician: Blair Perez Performed By: Priti Martin RVT and Student
--- NOTE | 2018-08-03 13:30 | CHAPLAIN ---
Type of Pastoral Visit _x__ Initial Visit ___ Follow-up Visit ___ On-call Visit ___ General Patient Visit ___ Spiritual Assessment ___ Family Conference ___ Bereavement ___ Rapid Response ___ Code Blue ___ Other (describe below) Pastoral Care Referral From _x__ Patient ___ Family ___ Nurse ___ Physician ___ Newspaper Delivery Driver ___ Swimming Pool Serviceperson ___ Other (describe below) Sacrament/Intervention _x__ Active listening ___ Anointing ___ Yarsanism ___ Bereavement ___ Communion ___ Rosanne exploration ___ ___ Life review _x__ Prayer ___ Reconciliation ___ Sacrament of Sick ___ Supportive presence ___ Wedding ___ Other (describe below) Pastoral Comments daughter is with patient in his room; pt tries to use humor to ease his discomfort; pt expresses thankfulness that his family is caring for him and that he is not in an ECF; pt accepts a prayer
--- NOTE | 2018-08-03 16:16 | PCM.PN.HOSP ---
Patient Problems: Active and Suspected Problems Expressive aphasia (Acute) Subjective: Patient is a 83-year-old man history of hypertension, rib fractures, atrial fibrillation, BPH with presenting with a history of expressive aphasia resolved. Patient is still having a cough, cannot get an MRI secondary to pacemaker, patient has not had a bowel movement in 2 days, and pain is seems to be well controlled. Echo and carotids look okay, still is concerned we will repeat CT of the head tomorrow to make sure after 48 hours is negative. She denies any other issues nausea vomiting still has chest pain from rib fractures. Vitals/I&O's: Vital Signs Temp Pulse Resp BP Pulse Ox 98.3 F 62 16 138/71 H 93 08/03/18 13:05 08/03/18 15:00 08/03/18 13:05 08/03/18 13:05 08/03/18 13:05 Oxygen Flow Rate (L/min) 2 Oxygen Delivery Method Nasal Cannula Weight: 85.1 kg Body Mass Index (BMI) 26.2 Finger Stick Blood Glucose 93 Intake and Output for Last 24 Hours 08/01/18 08/02/18 08/03/18 23:59 23:59 23:59 Intake Total 1200 / 1200 Balance 1200 / 1200 General: Alert, Oriented x3, Cooperative HEENT: Atraumatic, PERRLA, EOMI Oral: Moist Mucosa Neck: Supple, No JVD, Trachea Midline Lungs: No wheeze, No rales, Diminished, Rhonchi Cardiovascular: Normal S1, Normal S2, Murmur Abdomen: Soft, Non Tender, Distended Extremities: No clubbing, No cyanosis, Edema Skin: No rashes, No breakdown Musculoskeletal: No Tenderness to Palpation of Joints or Extremities, No Muscle Wasting Lymphatic: No Cervical, Supraclavicular, or Inguinal Adenopathy Neurological: Cranial nerves II-XII grossly intact, Neuro grossly intact Psych/Mental Status: Normal Affect, Appropriate, Agitated, Alert and oriented to time, place, person, mood and affect Laboratory Results 08/02/18 16:46: POC Glucose 93 08/02/18 17:05: WBC 14.5 H, RBC 4.53 L, Hgb 12.7 L, Hct 42.5, MCV 93.8, MCH 28.0, MCHC 29.9 L, RDW 17.3 H, RDW Differential 59.4 H, Plt Count 238, MPV 10.2, Immature Gran % (Auto) 0.400, Neut % (Auto) 83.3 H, Lymph % (Auto) 7.3 L, [place] % (Auto) 7.5, Eos % (Auto) 1.3, Baso % (Auto) 0.2, Absolute Neuts (auto) 12.1 H, Absolute Lymphs (auto) 1.06, Total Counted Not Reportable 08/02/18 17:05: PT 15.5 H, INR 1.2, APTT 35.5 08/02/18 17:05: Sodium 137, Potassium 3.7, Chloride 102, Carbon Dioxide 29.0, Anion Gap 6, BUN 43 H, Creatinine 2.68 H, Estim Creat Clear Calc 22.24, Est GFR (MDRD) Af Amer 29 L, Est GFR (MDRD) Non-Af 24 L, BUN/Creatinine Ratio 16.0, Glucose 88, Calcium 8.5, Troponin I < 0.015 08/02/18 17:05: Hemoglobin A1c 5.9 08/03/18 05:47: WBC 14.9 H, RBC 4.43 L, Hgb 12.6 L, Hct 41.6, MCV 93.9, MCH 28.4, MCHC 30.3 L, RDW 17.1 H, RDW Differential 58.8 H, Plt Count 238, MPV 10.6, Immature Gran % (Auto) 0.300, Neut % (Auto) 86.3 H, Lymph % (Auto) 5.4 L, [place] % (Auto) 6.4, Eos % (Auto) 1.5, Baso % (Auto) 0.1, Absolute Neuts (auto) 12.9 H, Absolute Lymphs (auto) 0.80 L, Total Counted Not Reportable 08/03/18 05:47: Sodium 140, Potassium 3.7, Chloride 102, Carbon Dioxide 27.0, Anion Gap 11, BUN 46 H, Creatinine 2.71 H, Estim Creat Clear Calc 22.00, Est GFR (MDRD) Af Amer 29 L, Est GFR (MDRD) Non-Af 24 L, BUN/Creatinine Ratio 17.0, Glucose 88, Calcium 8.5, Triglycerides 91, Cholesterol 139, LDL Cholesterol 76, VLDL Cholesterol 18, HDL Cholesterol 45 Current Medications Allopurinol (Zyloprim) 100 mg PO DAILYCM [facility] Last Admin: 08/03/18 09:50 Dose: 100 mg Amiodarone HCl (Cordarone) 200 mg PO DAILY [facility] Last Admin: 08/03/18 09:50 Dose: 200 mg Aspirin (Aspirin, Baby) 81 mg PO DAILY@0800 [facility] Last Admin: 08/03/18 09:50 Dose: 81 mg Atorvastatin Calcium (Lipitor) 40 mg PO QHS [facility] Last Admin: 08/02/18 21:28 Dose: 40 mg Benzonatate (Tessalon Perle) 100 mg PO Q4H PRN PRN PRN Reason: COUGH Calcitriol (Rocaltrol) 0.25 mcg PO DAILY [facility] Last Admin: 08/03/18 09:52 Dose: 0.25 mcg Carvedilol (Coreg) 12.5 mg PO BID [facility] Last Admin: 08/03/18 09:51 Dose: 12.5 mg Cholecalciferol (Vitamin D) 2,000 unit PO DAILY [facility] Last Admin: 08/03/18 09:52 Dose: 2,000 unit Citalopram Hydrobromide (Celexa) 20 mg PO DAILY [facility] Last Admin: 08/03/18 09:50 Dose: 20 mg Cyanocobalamin (Vitamin B12) 2,000 mcg PO TuFr [facility] Docusate Sodium (Colace) 100 mg PO BID [facility] Finasteride (Proscar) 5 mg PO DAILY [facility] Last Admin: 08/03/18 09:51 Dose: 5 mg Furosemide (Lasix) 40 mg PO DAILY [facility] Last Admin: 08/03/18 09:51 Dose: 40 mg Sodium Chloride () 250 mls @ 15 mls/hr IV .[id number] PRN PRN Reason: SALINE FLUSH Magnesium Citrate (Citrate Of Magnesia) 300 ml PO X1 ONE Stop: 08/03/18 16:14 Magnesium Hydroxide (Milk Of Magnesia) 30 ml PO DAILY PRN PRN PRN Reason: Constipation Oxycodone HCl (Oxyir) 5 mg PO Q4H PRN PRN PRN Reason: PAIN Last Admin: 08/03/18 16:09 Dose: 5 mg Pantoprazole Sodium (Protonix) 40 mg PO DAILY [facility] Last Admin: 08/03/18 09:51 Dose: 40 mg Polyethylene Glycol (Miralax) 17 gm PO DAILY [facility] Sodium Chloride () 5 - 30 ml IV UD PRN PRN Reason: SALINE FLUSH Last Admin: 08/03/18 03:54 Dose: 10 ml Tolterodine Tartrate (Detrol La) 2 mg PO DAILY [facility] Last Admin: 08/03/18 09:51 Dose: 2 mg Medical Necessity - Tobacco Use Smoking Status: Former smoker Tobacco Use: Cigarettes Assessment/Plan All Active Problems Expressive aphasia (Acute) Patient is a 83-year-old man history of hypertension, rib fractures, atrial fibrillation, BPH with presenting with a history of expressive aphasia 1. TIA NIHSS-0; aphasia had resolved at time of review. CT head was negative; EKG showed no acute ST changes and showed possible pacemaker failure. Echo and carotids are nonacute, will repeat CT scan of the head as patient has pacemaker and cannot get MRI PT and OT to evaluate patient neurology on board. Will continue aspirin and Lipitor. Has been taken off of anticoagulation due to internal bleeding in the past with rib fracture and is currently at a high fall risk. 2. Hypertension: Resumed home medication much improved, IV hydralazine 10 mg every 6 as needed 3. ?YANDY: Patient probably has chronic kidney disease but does not have any old laboratories to evaluate, monitor laboratories 4. Rib fractures: had a fall 3 days ago at home. Chest x-ray showed multiple right rib fractures with small pleural effusion. Percocet for pain. Fall precautions. continue aspirin and use incentive spirometry repeat chest x-ray to make sure that there is no further progression of pleural effusion. 5. Afib: on cavedilol and amiodarone. Will hold Xarelto in light of frequent falls. 6. BPH: On finasteride 7. Leukocytosis Probably likely stress-induced, no fevers, will recheck chest x-ray in the a.m. Depression: on celexa DVT prophylaxis: SCDs; no anticoagulation o/a of frequent falls CODE STATUS: Full code Diets cardiac Disposition patient admitted to hospital and will continue overnight likely discharge tomorrow if CT of the head is negative Chart is dictated with automobile body repair supervisor software. Errors may occur in dictation that may change providers meaning. This note was generated with [employer] dictation software. It may contain incorrect words, spelling, and punctuation that were not noted in checking the note before signing.
--- NOTE | 2018-08-03 16:22 | PN_ITS ---
Patient Problems: Active and Suspected Problems Expressive aphasia (Acute) Subjective: Patient is a 83-year-old man history of hypertension, rib fractures, atrial fibrillation, BPH with presenting with a history of expressive aphasia resolved. Patient is still having a cough, cannot get an MRI secondary to pacemaker, patient has not had a bowel movement in 2 days, and pain is seems to be well controlled. Echo and carotids look okay, still is concerned we will repeat CT of the head tomorrow to make sure after 48 hours is negative. She denies any other issues nausea vomiting still has chest pain from rib fractures. Vitals/I&O's: Vital Signs Temp Pulse Resp BP Pulse Ox 98.3 F 62 16 138/71 H 93 08/03/18 13:05 08/03/18 15:00 08/03/18 13:05 08/03/18 13:05 08/03/18 13:05 Oxygen Flow Rate (L/min) 2 Oxygen Delivery Method Nasal Cannula Weight: 85.1 kg Body Mass Index (BMI) 26.2 Finger Stick Blood Glucose 93 Intake and Output for Last 24 Hours 08/01/18 08/02/18 08/03/18 23:59 23:59 23:59 Intake Total 1200 / 1200 Balance 1200 / 1200 General: Alert, Oriented x3, Cooperative HEENT: Atraumatic, PERRLA, EOMI Oral: Moist Mucosa Neck: Supple, No JVD, Trachea Midline Lungs: No wheeze, No rales, Diminished, Rhonchi Cardiovascular: Normal S1, Normal S2, Murmur Abdomen: Soft, Non Tender, Distended Extremities: No clubbing, No cyanosis, Edema Skin: No rashes, No breakdown Musculoskeletal: No Tenderness to Palpation of Joints or Extremities, No Muscle Wasting Lymphatic: No Cervical, Supraclavicular, or Inguinal Adenopathy Neurological: Cranial nerves II-XII grossly intact, Neuro grossly intact Psych/Mental Status: Normal Affect, Appropriate, Agitated, Alert and oriented to time, place, person, mood and affect Laboratory Results 08/02/18 16:46: POC Glucose 93 08/02/18 17:05: WBC 14.5 H, RBC 4.53 L, Hgb 12.7 L, Hct 42.5, MCV 93.8, MCH 28.0, MCHC 29.9 L, RDW 17.3 H, RDW Differential 59.4 H, Plt Count 238, MPV 10.2, Immature Gran % (Auto) 0.400, Neut % (Auto) 83.3 H, Lymph % (Auto) 7.3 L, [place] % (Auto) 7.5, Eos % (Auto) 1.3, Baso % (Auto) 0.2, Absolute Neuts (auto) 12.1 H, Absolute Lymphs (auto) 1.06, Total Counted Not Reportable 08/02/18 17:05: PT 15.5 H, INR 1.2, APTT 35.5 08/02/18 17:05: Sodium 137, Potassium 3.7, Chloride 102, Carbon Dioxide 29.0, Anion Gap 6, BUN 43 H, Creatinine 2.68 H, Estim Creat Clear Calc 22.24, Est GFR (MDRD) Af Amer 29 L, Est GFR (MDRD) Non-Af 24 L, BUN/Creatinine Ratio 16.0, Glucose 88, Calcium 8.5, Troponin I < 0.015 08/02/18 17:05: Hemoglobin A1c 5.9 08/03/18 05:47: WBC 14.9 H, RBC 4.43 L, Hgb 12.6 L, Hct 41.6, MCV 93.9, MCH 28.4, MCHC 30.3 L, RDW 17.1 H, RDW Differential 58.8 H, Plt Count 238, MPV 10.6, Immature Gran % (Auto) 0.300, Neut % (Auto) 86.3 H, Lymph % (Auto) 5.4 L, [place] % (Auto) 6.4, Eos % (Auto) 1.5, Baso % (Auto) 0.1, Absolute Neuts (auto) 12.9 H, Absolute Lymphs (auto) 0.80 L, Total Counted Not Reportable 08/03/18 05:47: Sodium 140, Potassium 3.7, Chloride 102, Carbon Dioxide 27.0, Anion Gap 11, BUN 46 H, Creatinine 2.71 H, Estim Creat Clear Calc 22.00, Est GFR (MDRD) Af Amer 29 L, Est GFR (MDRD) Non-Af 24 L, BUN/Creatinine Ratio 17.0, Glucose 88, Calcium 8.5, Triglycerides 91, Cholesterol 139, LDL Cholesterol 76, VLDL Cholesterol 18, HDL Cholesterol 45 Current Medications Allopurinol (Zyloprim) 100 mg PO DAILYCM [facility] Last Admin: 08/03/18 09:50 Dose: 100 mg Amiodarone HCl (Cordarone) 200 mg PO DAILY [facility] Last Admin: 08/03/18 09:50 Dose: 200 mg Aspirin (Aspirin, Baby) 81 mg PO DAILY@0800 [facility] Last Admin: 08/03/18 09:50 Dose: 81 mg Atorvastatin Calcium (Lipitor) 40 mg PO QHS [facility] Last Admin: 08/02/18 21:28 Dose: 40 mg Benzonatate (Tessalon Perle) 100 mg PO Q4H PRN PRN PRN Reason: COUGH Calcitriol (Rocaltrol) 0.25 mcg PO DAILY [facility] Last Admin: 08/03/18 09:52 Dose: 0.25 mcg Carvedilol (Coreg) 12.5 mg PO BID [facility] Last Admin: 08/03/18 09:51 Dose: 12.5 mg Cholecalciferol (Vitamin D) 2,000 unit PO DAILY [facility] Last Admin: 08/03/18 09:52 Dose: 2,000 unit Citalopram Hydrobromide (Celexa) 20 mg PO DAILY [facility] Last Admin: 08/03/18 09:50 Dose: 20 mg Cyanocobalamin (Vitamin B12) 2,000 mcg PO TuFr [facility] Docusate Sodium (Colace) 100 mg PO BID [facility] Finasteride (Proscar) 5 mg PO DAILY [facility] Last Admin: 08/03/18 09:51 Dose: 5 mg Furosemide (Lasix) 40 mg PO DAILY [facility] Last Admin: 08/03/18 09:51 Dose: 40 mg Sodium Chloride () 250 mls @ 15 mls/hr IV .[id number] PRN PRN Reason: SALINE FLUSH Magnesium Citrate (Citrate Of Magnesia) 300 ml PO X1 ONE Stop: 08/03/18 16:14 Magnesium Hydroxide (Milk Of Magnesia) 30 ml PO DAILY PRN PRN PRN Reason: Constipation Oxycodone HCl (Oxyir) 5 mg PO Q4H PRN PRN PRN Reason: PAIN Last Admin: 08/03/18 16:09 Dose: 5 mg Pantoprazole Sodium (Protonix) 40 mg PO DAILY [facility] Last Admin: 08/03/18 09:51 Dose: 40 mg Polyethylene Glycol (Miralax) 17 gm PO DAILY [facility] Sodium Chloride () 5 - 30 ml IV UD PRN PRN Reason: SALINE FLUSH Last Admin: 08/03/18 03:54 Dose: 10 ml Tolterodine Tartrate (Detrol La) 2 mg PO DAILY [facility] Last Admin: 08/03/18 09:51 Dose: 2 mg Medical Necessity - Tobacco Use Smoking Status: Former smoker Tobacco Use: Cigarettes Assessment/Plan All Active Problems Expressive aphasia (Acute) Patient is a 83-year-old man history of hypertension, rib fractures, atrial fibrillation, BPH with presenting with a history of expressive aphasia 1. TIA NIHSS-0; aphasia had resolved at time of review. CT head was negative; EKG showed no acute ST changes and showed possible pacemaker failure. Echo and carotids are nonacute, will repeat CT scan of the head as patient has pacemaker and cannot get MRI PT and OT to evaluate patient neurology on board. Will continue aspirin and Lipitor. Has been taken off of anticoagulation due to internal bleeding in the past with rib fracture and is currently at a high fall risk. 2. Hypertension: Resumed home medication much improved, IV hydralazine 10 mg every 6 as needed 3. ?YANDY: Patient probably has chronic kidney disease but does not have any old laboratories to evaluate, monitor laboratories 4. Rib fractures: had a fall 3 days ago at home. Chest x-ray showed multiple right rib fractures with small pleural effusion. Percocet for pain. Fall precautions. continue aspirin and use incentive spirometry repeat chest x-ray to make sure that there is no further progression of pleural effusion. 5. Afib: on cavedilol and amiodarone. Will hold Xarelto in light of frequent falls. 6. BPH: On finasteride 7. Leukocytosis Probably likely stress-induced, no fevers, will recheck chest x-ray in the a.m. Depression: on celexa DVT prophylaxis: SCDs; no anticoagulation o/a of frequent falls CODE STATUS: Full code Diets cardiac Disposition patient admitted to hospital and will continue overnight likely discharge tomorrow if CT of the head is negative Chart is dictated with lodge sales associate software. Errors may occur in dictation that may change providers meaning. This note was generated with [employer] dictation software. It may contain incorrect words, spelling, and punctuation that were not noted in checking the note before signing.
[2018-08-03] MEDS: Magnesium Citrate 300 ML PO (18:15)
[2018-08-03] MEDS: Atorvastatin Calcium 40 MG Tablet PO (21:02)
[2018-08-03] MEDS: Docusate Sodium 100 MG Capsule PO (21:02)
[2018-08-04] VITALS (9 sets, daily range): BP systolic 146–156; BP diastolic 68–76; PULSE 63–72; RESP 14–20; TEMP 36.6–36.8; O2SAT 86–96
--- NOTE | 2018-08-04 05:35 | RAD_ITS ---
STUDY: X-RAY CHEST REASON FOR EXAM: Male, 83 years old. Cough. TECHNIQUE: Single AP portable view of the chest. COMPARISON: Comparison is made with prior examination dated August 02, 2018. FINDINGS: EKG electrodes are seen. At this time, there is improved aeration of both lungs. Mild residual changes persist at the lung bases slightly worse on the right side. There is no demonstrated pleural abnormality. There is mild cardiac enlargement. A left-sided dual-chamber pacemaker is seen. Normal mediastinum and faye. Normal visualized pulmonary arteries. There is atherosclerotic calcification of the aortic arch with tortuosity. There are diffuse degenerative changes of the visualized thoracic spine. Nondisplaced right lower rib fractures. Prior fusion in the lower cervical spine. There is no demonstrated abnormality of the visualized soft tissue structures of the upper abdomen. RAD/Chest 1 View (Portable) IMPRESSION: Improved aeration since prior study. Mild residual changes persist at the right lung base. Electronically Signed: Faustino Magallon MD at 9:06 EDT Tel [phone], Service support ,
--- NOTE | 2018-08-04 05:55 | CT_ITS ---
STUDY: CT BRAIN WITHOUT CONTRAST REASON FOR EXAM: Male, 83 years old. 48 hour follow-up after expressive aphasia resolution. RADIATION DOSAGE (If Supplied By Facility): CTDIvol = ( 60.81 ) mGy, DLP = ( 1089.89 ) mGycm TECHNIQUE: Transaxial CT imaging of the brain was performed without administration of intravenous contrast material. Multiplanar reformations are submitted for interpretation. Individualized dose optimization techniques were used for this CT. COMPARISON: None. FINDINGS: Normal soft tissue structures. Normal calvarium. There is mild cerebral atrophy with widening of the extra-axial spaces and ventricular dilatation. There are areas of decreased attenuation within the white matter tracts of the supratentorial brain, consistent with microvascular disease changes. Normal basal ganglia and thalami. Normal brainstem. There is mild cerebellar atrophy. There is no intracranial hemorrhage. There is moderate atherosclerotic calcification of the intracranial arteries. There are mucous retention cysts within bilateral maxillary sinuses. CT/Brain/Head without Contrast IMPRESSION: 1. Chronic involutional changes of the brain. 2. No CT evidence of acute intracranial hemorrhage. Electronically Signed: Jossy Trujillo MD at 7:47 EDT , Service support ,
--- NOTE | 2018-08-04 05:55 | EKG12_ITS ---
Test Reason : MORNING EKG Blood Pressure : / mmHG Vent. Rate : 061 BPM Atrial Rate : 061 BPM P-R Int : 138 ms QRS Dur : 158 ms QT Int : 538 ms P-R-T Axes : 054 159 -41 degrees QTc Int : 541 ms Atrial-sensed ventricular-paced rhythm Abnormal ECG When compared with ECG of 02-AUG-2018 16:55, MANUAL COMPARISON REQUIRED, DATA IS UNCONFIRMED Confirmed by YANET MOORE ([id number]), script editor ROBERT URIBE ([id number]) on 08/08/2018 12:49:21 PM Referred By: YADIRA Confirmed By:YANET MOORE
[2018-08-04 06:49] LABS: Absolute Lymphocyte Count 1.04 X10^3/ul (0.83-4.51); Absolute Neutrophil Count 9.1 X10^3/uL (2.0-7.7); Basophil# 0.01 X10^3/uL; Basophil% 0.1 % (0-1); Eosinophil# 0.29 X10^3/uL; Eosinophils% 2.5 % (0-5); Hematocrit 37.6 % (40-54); Hemoglobin 11.8 g/dl (13.0-16.5); Lymphocyte # 1.04 X10^3/ul (4.0); Mean Corp Hgb Conc 31.4 g/gl (32-36); Mean Corpuscular Hgb 29.1 pg (27.0-32.0); Mean Corpuscular Volume 92.8 fL (80-94); Mean Platelet Vol. 10.2 fl (6.2-12.0); Monocyte# 1.05 X10^3/uL; Monocyte% 9.1 % (0-10); Neutrophil # 9.14 X10^3/uL (2.7-7.7); Platelet Count 214 K/mm3 (150-450); RBC Distribution Width CV 17.1 % (11.6-14.6); RBC Distribution Width SD 56.2 fl (35.1-43.9); Red Blood Count 4.05 M/mm3 (4.6-6.2); White Blood Count 11.6 K/mm3 (4.4-11.0)
[2018-08-04 06:53] LABS: POSITIVE COUNT NO; POSITIVE DIFFERENTIAL NO; POSITIVE MORPHOLOGY NO
[2018-08-04 07:07] LABS: ALB/GLOB Ratio 0.8 RATIO (0.9-2.4); AST(SGOT) 13 U/L (15-37); Alanine Aminotransfer ALT/SGPT 15 U/L (16-61); Albumin, Serum 2.7 g/dL (3.2-5.0); Alkaline Phosphatase 78 U/L (45-117); Anion Gap 8 (5-15); BUN 45 mg/dL (7-18); BUN/Creat Ratio 17.3 RATIO (10-20); Calcium,Total 8.4 mg/dL (8.5-10.1); Chloride 102 mmol/L (98-107); EST Glomerular Filtration Rate 25 mL/min (>60); Est Glom Filt Rate - Afr Amer 30 mL/min (>60); Estimated Creatinine Clearance 22.93 ml/min; Globulin 3.5 g/dL (2.2-4.2); Glucose 98 mg/dL (74-106); Magnesium 2.4 mg/dL (1.6-2.6); Potassium 3.7 mmol/L (3.5-5.1); Protein, Total 6.2 g/dL (6.4-8.2); Sodium Level 139 mmol/L (136-145)
[2018-08-04] MEDS: Aspirin 81 MG TAB.CHEW PO (08:03)
[2018-08-04] MEDS: oxyCODONE 5 MG Tablet PO ×2 (08:03→14:37)
[2018-08-04] MEDS: Allopurinol 100 MG Tablet PO (08:03)
[2018-08-04] MEDS: Docusate Sodium 100 MG Capsule PO (08:04)
[2018-08-04] MEDS: Amiodarone 200 MG Tablet PO (08:04)
[2018-08-04] MEDS: Carvedilol 12.5 MG Tablet PO (08:04)
[2018-08-04] MEDS: Tolterodine Tartrate 2 MG CAP.SA PO (08:04)
[2018-08-04] MEDS: Citalopram 20 MG Tablet PO (08:04)
[2018-08-04] MEDS: Pantoprazole Sodium 40 MG Tablet PO (08:05)
[2018-08-04] MEDS: Polyethylene Glycol 3350 17 GM PACKET PO (08:05)
[2018-08-04] MEDS: Calcitriol 0.25 MCG Capsule PO (08:05)
[2018-08-04] MEDS: Furosemide 40 MG Tablet PO (08:05)
[2018-08-04] MEDS: Finasteride 5 MG Tablet PO (08:05)
[2018-08-04] MEDS: Cyanocobalamin 500 MCG Tablet 2000 MCG PO (08:11)
--- NOTE | 2018-08-04 10:33 | CASEMGMT ---
ROBINA PERSAUD assessment: Face to Face with patient for initial transition planning/care coordination assessment. ROBINA PERSAUD introduced self and role at [facility], pt voices understanding and consents to assessment at this time. Pt is lying on right side in bed but doesn't really open eyes while this RN CORI asks questions. Pt is A/Ox4 at this time and answers questions appropriately at this time but goes back and forth about discharge plan. Care providers, pharmacy, and demographics verified at this time. Per pt request, call to sonChris, to verify discharge plan. PCP: Chris Specialists: Lazaro-nephro; Jyaa-cardio Preferred Pharmacy: [facility] Insurance: [facility] A/B, AARP Prescription Benefit: Pt states has Rx insurance but is unsure who it is through. Living Will/HPOA: Pt states has LW/HPOA but they are not currently on file at [facility] at this time. LNOK: Rainer Simons, son Living Arrangements: Pt currently lives with his daughter in a house and states no concerns at home at this time but daughter does work and pt is alone for a large portion of the day. Per son, Rainer, he plans to take pt to his home where him and his will be able to be with pt for most of day. Per son, pt will only be alone at his home for about 1-2hours/day. He states that pt will be on one level with no stairs. Therapy is recommending further skilled therapy and a wheeled walker for pt at this time. Son states that he would prefer that pt do OP therapy at [facility] at this time, pt voices agreement and script for OP PT/OT faxed to [facility] at this time. [phone] Transportation: Pt states was driving self prior to fall several days ago but has not driven since, per son, no transportation concerns. DME/HHC: Pt currently has regular walker and cane at home. Script for WW faxed to [facility] along with script for home oxygen as pt qualifies for home oxygen at this time. Call to [facility] to verify scripts received and Rosanne states that a pile driver will be en route. Son states pt has no hx of HHC or SNF in the past. Son updated on all at this time and voices understanding. Pt/son voice no concerns with pt going to son's home at time of discharge. Pt states does not smoke or drink ETOH. Pt/son voice no further concerns/needs at this time. Advised pt/son to ask for any further questions/concerns/needs arise, voices understanding. Plan: Home w/ OP therapy, WW, and home oxygen. + Juan C QUARLES CM
--- NOTE | 2018-08-04 10:35 | DCINST_ITS ---
- Discharge Diagnoses Current Active Problems: Current Active and Chronic Problems Expressive aphasia (Acute) You will use the following diet at home:: Cardiac, Fluid restricted (specify 2000 mls, 1500 mls) - 1500 Your food should be the consistency of: Regular Discharge Activity: Return to Normal Activity May resume sexual activity in: No Restrictions Call your doctor if you observe: Fever of 101 or Higher, Numbness or Tingling, Inability to urinate, Shortness of breath, Dizziness, Fainting spells, Chest pain, Uncontrolled pain Allergies/Adverse Reactions: Allergies TRUNG Inhibitors Allergy (Verified 08/02/18 16:44) Swelling hydralazine Allergy (Verified 08/02/18 16:44) Itching pneumococcal vaccine [From Pneumovax 23] Allergy (Verified 08/02/18 16:44) Hives ferrous sulfate Adverse Reaction (Verified 08/02/18 16:44) Nausea/Vom/Diarrhea Medications to take at Discharge Allopurinol [Zyloprim] 100 mg PO DAILYCM 08/02/18 Amiodarone HCl [Cordarone] 200 mg PO DAILY 08/02/18 Aspirin [Aspirin, Baby] 81 mg PO DAILY@0800 08/02/18 Calcitriol [Rocaltrol] 0.25 mcg PO DAILY 08/02/18 Cholecalciferol (VIT D3) [Vitamin D3] 2,000 unit PO DAILY 08/02/18 Citalopram [Celexa] 20 mg PO DAILY 08/02/18 Cyanocobalamin (Vitamin B-12) [Vitamin B-12] 2,000 mcg PO TUFR 08/02/18 Finasteride [Proscar] 5 mg PO DAILY 08/02/18 Lovastatin [Altoprev] 40 mg PO DAILY 08/02/18 Oxybutynin [Ditropan] 5 mg PO DAILY 08/02/18 Oxycodone HCl/Acetaminophen [Percocet 5-325] 1 tablet PO Q4H PRN PRN 08/02/18 Pantoprazole Sodium [Protonix] 40 mg PO DAILY 08/02/18 Tadalafil [Cialis] 20 mg PO PRN PRN 08/02/18 Torsemide [Demadex] 20 mg PO DAILY 08/02/18 Benzonatate [Tessalon Perle] 100 mg PO Q4H PRN PRN #60 capsule 10/26/18 Carvedilol [Coreg (Beta Davion)] 12.5 mg PO BID #60 tablet 08/04/18 Docusate Sodium [Colace] 100 mg PO BID #60 capsule 08/04/18 Polyethylene Glycol 3350 [Miralax] 17 gm PO DAILY #30 packet 08/04/18 The following prescriptions were given: Benzonatate [Tessalon Perle] 100 mg PO Q4H PRN PRN #60 capsule PRN Reason: COUGH Polyethylene Glycol 3350 [Miralax] 17 gm PO DAILY #30 packet Carvedilol [Coreg (Beta Davion)] 12.5 mg PO BID #60 tablet Docusate Sodium [Colace] 100 mg PO BID #60 capsule Primary Care Physician: Blair Perez MD [Primary Care Provider] - Please follow up with your Primary Care Physician in: 1 week Test Results: Test results from this visit will be discussed in further detail at your follow- up appointment, if applicable.
--- NOTE | 2018-08-04 10:35 | PCM.PN.HOSP ---
Patient Problems: Active and Suspected Problems TIA (transient ischemic attack) (Acute) Expressive aphasia (Acute) Subjective: Patient is a 83-year-old man history of hypertension, rib fractures, atrial fibrillation, BPH with presenting with a history of expressive aphasia resolved. She taken off of anticoagulation secondary to a fall and rib fractures. Echocardiogram showed an EF of 30%, will restart patient's home medications not on TRUNG inhibitor secondary to allergy and not on ARB secondary to the kidney function. Patient's carotids are resulted, patient has no new symptoms, PT OT will be evaluating and home health may be required. Also may need oxygen, chest x-ray shows improved aeration today. Patient otherwise has no new complaints wish to go to home yesterday, will make sure patient gets the required items before discharge. Neurology was consulted on the case as well. We will continue mainly his home medications of aspirin, lovastatin, bili patient's blood pressure has been on the low side with heart rate on the low side as well have Beta-ev in half to 12.5. Will have patient follow-up with PCP for further evaluation and care. Medications reviewed with the patient. Risks, benefits, alternatives, side effects, potential complications and dangers of medications discussed. Patient wishes to utilize these agents despite risk. A signed medical consent/advisement form regarding narcotic medications and a side medication agreement are located in the patient's chart. Chart is dictated with educational administrator software. Errors may occur in dictation that may change providers meaning. This note was generated with [employer] dictation software. It may contain incorrect words, spelling, and punctuation that were not noted in checking the note before signing. Vitals/I&O's: Vital Signs Temp Pulse Resp BP Pulse Ox 98.3 F 69 16 156/72 H 86 08/04/18 08:16 08/04/18 08:16 08/04/18 08:16 08/04/18 08:16 08/04/18 10:31 Oxygen Flow Rate (L/min) 2 Oxygen Delivery Method Nasal Cannula Weight: 85.1 kg Body Mass Index (BMI) 26.2 Finger Stick Blood Glucose 93 Intake and Output for Last 24 Hours 08/02/18 08/03/18 08/04/18 23:59 23:59 23:59 Intake Total 0 / 1900 Balance 1899 / 1899 General: Alert, Oriented x3, Cooperative HEENT: Atraumatic, PERRLA, EOMI Oral: Moist Mucosa, No Gingival or Mucosal Lesions/ Ulcerations Neck: Supple, No JVD, Trachea Midline Lungs: Clear to auscultation, No wheeze, No rales, Rhonchi Cardiovascular: Normal S1, Normal S2, Bradycardic Abdomen: Soft, Non Tender, Non-Distended Extremities: No clubbing, No cyanosis, Edema - Slight Skin: No rashes, No breakdown Musculoskeletal: No Tenderness to Palpation of Joints or Extremities, No Muscle Wasting Lymphatic: No Cervical, Supraclavicular, or Inguinal Adenopathy Neurological: Cranial nerves II-XII grossly intact, Neuro grossly intact Psych/Mental Status: Normal Affect, Appropriate, Alert and oriented to time, place, person, mood and affect - Patient slightly somnolent is that he did not sleep well Laboratory Results 08/04/18 06:10: WBC 11.6 H, RBC 4.05 L, Hgb 11.8 L, Hct 37.6 L, MCV 92.8, MCH 29.1, MCHC 31.4 L, RDW 17.1 H, RDW Differential 56.2 H, Plt Count 214, MPV 10.2, Immature Gran % (Auto) 0.300, Neut % (Auto) 79.0 H, Lymph % (Auto) 9.0 L, Union % (Auto) 9.1, Eos % (Auto) 2.5, Baso % (Auto) 0.1, Absolute Neuts (auto) 9.1 H, Absolute Lymphs (auto) 1.04, Total Counted Not Reportable 08/04/18 06:10: Sodium 139, Potassium 3.7, Chloride 102, Carbon Dioxide 29.0, Anion Gap 8, BUN 45 H, Creatinine 2.60 H, Estim Creat Clear Calc 22.93, Est GFR (MDRD) Af Amer 30 L, Est GFR (MDRD) Non-Af 25 L, BUN/Creatinine Ratio 17.3, Glucose 98, Calcium 8.4 L, Phosphorus 3.0, Magnesium 2.4, Total Bilirubin 1.10 H, AST 13 L, ALT 15 L, Alkaline Phosphatase 78, Total Protein 6.2 L, Albumin 2.7 L, Globulin 3.5, Albumin/Globulin Ratio 0.8 L Echocardiogram: MR#: [id number] Acct: [id number] Name: CHACHA HAIR Rep #: [id number] : 1935 83 From: Ruddy Lake MD Attending Dr: Nicolas Guerrero MD Status: ADM PIERCE Ordering Dr: Cathie Suarez MD Date: 08/03/18 Location: [facility] Sex: M C Admitted: 08/02/18 [id number] ECHO^ECHOD^Echo Complete [id number] TAG_START Cardiovascular Services Echocardiogram [address] [place] [address] Ordering Physician: Cathie Suarez TAG_ENDED TAG_START Name: CHACHA HAIR Study Date: 08/03/2018 08:41 AM BP: 162/57 mmHg Patient Location: [facility]^[id number]^1 BSA: 2.0 m2 : 1935 Gender: Male Height: 71 in Age: 83 yrs Ethnicity: C Weight: 187 lb History: AFIB, Pacemaker, Former smoker, HTN TAG_ENDED Reason For Study: EMBOLI Procedure This was a 2D Doppler, Color Flow transthoracic echocardiogram. Exam performed portable in patient room. Left Ventricle Moderately dilated left ventricle. The estimated ejection fraction is 30 %. Stage 2 diastolic dysfunction. No regional wall motion abnormalities noted. TAG_START TAG_ENDED Right Ventricle Moderately dilated right ventricle. ICD or pacer leads identified within the right ventricle. Mild global right ventricular systolic dysfunction. Atria The left atrium is moderately enlarged. Normal right atrium. ICD or pacer leads identified within the right atrium. Normal atrial septum. Bubble contrast study negative for right to left interatrial shunt. Mitral Valve Mild diffuse mitral valve thickening. Mild mitral annular calcification extending into the posterior leaflet. Mild (1+) mitral valve insufficiency. Tricuspid Valve Normal tricuspid valve. Moderate (2+) tricuspid valve insufficiency. Right ventricular systolic pressure estimated to be 68 mmHg. Severe pulmonary hypertension. Aortic Valve Trisinus/trileaflet aortic valve. Mild diffuse aortic valve thickening. Mild restriction of the aortic valve. Mild aortic stenosis. Peak aortic valve gradient 14 mmHg. Mean aortic valve gradient 9 mmHg. Trivial aortic valve insufficiency. Pulmonic Valve Normal pulmonic valve. Trivial pulmonic valve insufficiency. Great Vessels Normal aortic root. Normal arch. Normal inferior vena cava. Inferior vena cava collapse with sniff. Pericardium/Pleural No pericardial effusion. Medication Performed a rapid injection of agitated mix of 9 cc saline and 1cc air to assess for atrial septal defect. Bubble study (x 3 ) was indeterminate. MMode/2D Measurements & Calculations IVSd: 1.2 cm LVIDd: 5.0 cm FS: 21.0 % LVIDs: 4.0 cm LVPWd: 1.4 cm Ao root diam: 4.1 cm LVAd ap4: 40.4 cm2 SV(MOD-sp4): 74.4 ml LA dimension: 5.0 cm EDV(MOD-sp4): 149.6 ml EDV(sp4-el): 161.2 ml LVAs ap4: 25.7 cm2 ESV(MOD-sp4): 75.2 ml ESV(sp4-el): 77.6 ml EF(MOD-sp4): 49.7 % EF(sp4-el): 51.8 % SV(sp4-el): 83.6 ml Doppler Measurements & Calculations MV E max robby: 66.6 cm/sec MV V2 max: 94.8 cm/sec MV dec time: 0.21 sec MV A max robby: 45.9 cm/sec MV max P.6 mmHg MV E/A: 1.5 MV V2 mean: 41.6 cm/sec MV mean P.86 mmHg MV V2 VTI: 25.3 cm Ao V2 max: 187.6 cm/sec AI max robby: 381.6 cm/sec LV V1 max P.0 mmHg Ao max P.1 mmHg AI max P.4 mmHg LV V1 mean P.6 mmHg Ao V2 mean: 133.0 cm/sec AI dec slope: 249.5 cm/sec2 LV V1 max: 86.9 cm/sec Ao mean P.9 mmHg AI P1/2t: 448.0 msec LV V1 mean: 60.7 cm/sec Ao V2 VTI: 36.6 cm LV V1 VTI: 19.6 cm PA V2 max: 144.7 cm/sec PI end-d robby: 133.5 cm/sec TR max robby: 394.7 cm/sec TR max P.9 mmHg Pediatric Measurements & Calculations Lat Peak E' Robby: 9.1 cm/sec Med Peak E' Robby: 3.9 cm/sec Interpretation Summary Moderately dilated left ventricle. The estimated ejection fraction is 30 %. Stage 2 diastolic dysfunction. Moderately dilated right ventricle. Mild global right ventricular systolic dysfunction. The left atrium is moderately enlarged. Moderate (2+) tricuspid valve insufficiency. Right ventricular systolic pressure estimated to be 68 mmHg. Severe pulmonary hypertension. Bubble contrast study negative for right to left interatrial shunt. Possible accessory chordae tendonae seen in LV of no clinical significance. TAG_START TAG_ENDED Ordering Physician: Cathie Suarez Referring Physician: BENEDICT HENRIQUEZ Performed By: Meggan Blackwell, FRANCOISE, RVT 08/03/18 1301 Date Ruddy Lake MD CC: Benedict Henriquez MD; Cathie Suarez MD; Nicolas Guerrero MD ~ Date Dictated: 08/03/1841 Date Transcribed: 08/03/181300 Director Of Radio Services: Signed Carotid duplex: MR#: [id number] Acct: [id number] Name: CHACHA HAIR Rep #: [id number] : 1935 83 From: Elils Wing MD Attending Dr: Nicolas Guerrero MD Status: ADM PIERCE Ordering Dr: Nicolas Guerrero MD Date: 08/03/18 Location: [facility] Sex: M C Admitted: 08/02/18 [id number] VL^CDU^Carotid Duplex Ultrasound [id number] TAG_START Cardiovascular Services Carotid Duplex Ultrasound [address] [place], [place] [address] Ordering Physician: Nicolas Guerrero TAG_ENDED TAG_START Name: CHACHA HAIR Study Date: 08/03/2018 12:51 PM Patient Location: [facility]^[id number]^1 : 1935 Gender: Male Age: 83 yrs Ethnicity: C TAG_ENDED Reason For Study: TIA Rt. Velocities/BP Lt. Velocities/BP Prox CCA 63.1/7.01 cm/sec. Prox CCA 90.3/5.86 cm/sec. Mid CCA 57.5/8.79 cm/sec. Mid CCA 65.7/8.79 cm/sec. Dist CCA 91.5/7.04 cm/sec. Dist CCA 56.3/8.21 cm/sec. Prox ICA 140/16.7 cm/sec. Prox ICA 58/8.21 cm/sec. Mid ICA 125/22.6 cm/sec. Mid ICA 67.5/11.8 cm/sec. Dist ICA 95.1/14.1 cm/sec. Dist ICA 94.4/14.1 cm/sec. Rt. ICA/CCA = 2.22. Lt. ICA/CCA = 1.44. Prox ECA 142 cm/sec. Prox ECA 106 cm/sec. Rt. Vert. 35/7.86 cm/sec. Lt. Vert. 86.2/9.38 cm/sec. Right Extracranial There is intimal thickening but no significant atherosclerotic plaque noted in the right common carotid artery. There is heterogeneous, irregular atherosclerotic plaque noted in the right internal carotid artery. There is intimal thickening but no significant atherosclerotic plaque noted in the right external carotid artery. Antegrade flow is noted in the right vertebral artery. There is heterogeneous, smooth atherosclerotic plaque noted in the right bulb. Left Extracranial There is intimal thickening but no significant atherosclerotic plaque noted in the left common carotid artery. There is heterogeneous, irregular atherosclerotic plaque noted in the left internal carotid artery. There is intimal thickening but no significant atherosclerotic plaque noted in the left external carotid artery. Antegrade flow is noted in the left vertebral artery. Procedure Carotid Duplex [id number]. Exam performed portable in patient room. Interpretation Summary Soft plague at the proximal right internal carotid with 50-69% stenosis. Minimal plague at the proximal left internal carotid with <50% stenosis. Mild disease right external carotid Normal flow left external carotid Patent and antegrade vertebrals bilaterally TAG_START TAG_ENDED Ordering Physician: Nicolas Guerrero Referring Physician: Benedict Henriquez Performed By: Priti Martin RVT and Student 08/03/18 1601 Date Ellis Wing MD CC: Benedict Henriquez MD; Nicolas Guerrero MD ~ Date Dictated: 08/03/18 1251 Date Transcribed: 08/03/18 1601 Director Of Radio Services: Signed CT of the brain: STUDY: CT BRAIN WITHOUT CONTRAST REASON FOR EXAM: Male, 83 years old. 48 hour follow-up after expressive aphasia resolution. RADIATION DOSAGE (If Supplied By Facility): CTDIvol = ( 60.81 ) mGy, DLP = ( 1089.89 ) mGycm TECHNIQUE: Transaxial CT imaging of the brain was performed without administration of intravenous contrast material. Multiplanar reformations are submitted for interpretation. Individualized dose optimization techniques were used for this CT. COMPARISON: None. FINDINGS: Normal soft tissue structures. Normal calvarium. There is mild cerebral atrophy with widening of the extra-axial spaces and ventricular dilatation. There are areas of decreased attenuation within the white matter tracts of the supratentorial brain, consistent with microvascular disease changes. Normal basal ganglia and thalami. Normal brainstem. There is mild cerebellar atrophy. There is no intracranial hemorrhage. There is moderate atherosclerotic calcification of the intracranial arteries. There are mucous retention cysts within bilateral maxillary sinuses. CT/Brain/Head without Contrast IMPRESSION: 1. Chronic involutional changes of the brain. 2. No CT evidence of acute intracranial hemorrhage. Electronically Signed: Jossy Trujillo MD at 7:47 EDT , Service support , CC: Benedict Henriquez MD; Nicolas Guerrero MD ~ Director Of Radio Services: Signed Current Medications Allopurinol (Zyloprim) 100 mg PO DAILYCM [facility], [facility] Last Admin: 08/04/18 08:03 Dose: 100 mg Amiodarone HCl (Cordarone) 200 mg PO DAILY [facility] Last Admin: 08/04/18 08:04 Dose: 200 mg Aspirin (Aspirin, Baby) 81 mg PO DAILY@0800 [facility] Last Admin: 08/04/18 08:03 Dose: 81 mg Atorvastatin Calcium (Lipitor) 40 mg PO QHS [facility] Last Admin: 08/03/18 21:02 Dose: 40 mg Benzonatate (Tessalon Perle) 100 mg PO Q4H PRN PRN PRN Reason: COUGH Calcitriol (Rocaltrol) 0.25 mcg PO DAILY [facility] Last Admin: 08/04/18 08:05 Dose: 0.25 mcg Carvedilol (Coreg) 12.5 mg PO BID [facility] Last Admin: 08/04/18 08:04 Dose: 12.5 mg Cholecalciferol (Vitamin D) 2,000 unit PO DAILY [facility] Last Admin: 08/04/18 08:13 Dose: 2,000 unit Citalopram Hydrobromide (Celexa) 20 mg PO DAILY [facility] Last Admin: 08/04/18 08:04 Dose: 20 mg Cyanocobalamin (Vitamin B12) 2,000 mcg PO TuFr [facility] Last Admin: 08/04/18 08:11 Dose: 2,000 mcg Docusate Sodium (Colace) 100 mg PO BID [facility] Last Admin: 08/04/18 08:04 Dose: 100 mg Finasteride (Proscar) 5 mg PO DAILY [facility] Last Admin: 08/04/18 08:05 Dose: 5 mg Furosemide (Lasix) 40 mg PO DAILY [facility] Last Admin: 08/04/18 08:05 Dose: 40 mg Sodium Chloride () 250 mls @ 15 mls/hr IV .[id number] PRN PRN Reason: SALINE FLUSH Magnesium Hydroxide (Milk Of Magnesia) 30 ml PO DAILY PRN PRN PRN Reason: Constipation Oxycodone HCl (Oxyir) 5 mg PO Q4H PRN PRN PRN Reason: PAIN Last Admin: 08/04/18 08:03 Dose: 5 mg Pantoprazole Sodium (Protonix) 40 mg PO DAILY [facility] Last Admin: 08/04/18 08:05 Dose: 40 mg Polyethylene Glycol (Miralax) 17 gm PO DAILY [facility] Last Admin: 08/04/18 08:05 Dose: 17 gm Sodium Chloride () 5 - 30 ml IV UD PRN PRN Reason: SALINE FLUSH Last Admin: 08/03/18 03:54 Dose: 10 ml Tolterodine Tartrate (Detrol La) 2 mg PO DAILY VANNESSA Last Admin: 08/04/18 08:04 Dose: 2 mg Medical Necessity - Tobacco Use Smoking Status: Former smoker Tobacco Use: Cigarettes Assessment/Plan All Active Problems TIA (transient ischemic attack) (Acute) Expressive aphasia (Acute) Patient is a 83-year-old man history of hypertension, rib fractures, atrial fibrillation, BPH with presenting with a history of expressive aphasia TIA NIHSS-0; aphasia had resolved. CT head was negative to; EKG showed no acute ST change, no pacemaker failure. Echo and carotids are nonacute, will repeat CT scan of the head as patient and cannot get MRI PT and OT to evaluate patient neurology on consulted. Will continue aspirin and statin. Has been taken off of anticoagulation due to internal bleeding in the past with rib fracture and is currently at a high fall risk. Hypertension: Resumed home medication much improved Chronic kidney disease: Patient probably has chronic kidney disease but does not have any old laboratories to evaluate, monitor laboratories Rib fractures: had a fall 3 days ago at home. Chest x-ray showed multiple right rib fractures with small pleural effusion. Percocet for pain. Fall precautions. continue aspirin and use incentive spirometry repeat chest x-ray to make sure that there is no further progression of pleural effusion. Afib: on cavedilol and amiodarone. Will hold Xarelto in light of frequent falls. 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 Depression: on celexa DVT prophylaxis: SCDs; no anticoagulation o/a of frequent falls CODE STATUS: Full code Diets cardiac 1500 fluid restriction Disposition patient will be discharged once PT OT and any durable medical equipment/oxygen gotten for the patient. Chart is dictated with educational administrator software. Errors may occur in dictation that may change providers meaning. This note was generated with [employer] dictation software. It may contain incorrect words, spelling, and punctuation that were not noted in checking the note before signing. Code Visit Inpatient E&M: 91420 Disch Hosp
--- NOTE | 2018-08-04 10:40 | PN_ITS ---
Patient Problems: Active and Suspected Problems TIA (transient ischemic attack) (Acute) Expressive aphasia (Acute) Subjective: Patient is a 83-year-old man history of hypertension, rib fractures, atrial fibrillation, BPH with presenting with a history of expressive aphasia resolved. She taken off of anticoagulation secondary to a fall and rib fractures. Echocardiogram showed an EF of 30%, will restart patient's home medications not on TRUNG inhibitor secondary to allergy and not on ARB secondary to the kidney function. Patient's carotids are resulted, patient has no new symptoms, PT OT will be evaluating and home health may be required. Also may need oxygen, chest x-ray shows improved aeration today. Patient otherwise has no new complaints wish to go to home yesterday, will make sure patient gets the required items before discharge. Neurology was consulted on the case as well. We will continue mainly his home medications of aspirin, lovastatin, bili patient's blood pressure has been on the low side with heart rate on the low side as well have Beta-ev in half to 12.5. Will have patient follow-up with PCP for further evaluation and care. Medications reviewed with the patient. Risks, benefits, alternatives, side effects, potential complications and dangers of medications discussed. Patient wishes to utilize these agents despite risk. A signed medical consent/advisement form regarding narcotic medications and a side medication agreement are located in the patient's chart. Chart is dictated with hook and eye sewing machine operator software. Errors may occur in dictation that may change providers meaning. This note was generated with [employer] dictation software. It may contain incorrect words, spelling, and punctuation that were not noted in checking the note before signing. Vitals/I&O's: Vital Signs Temp Pulse Resp BP Pulse Ox 98.3 F 69 16 156/72 H 86 08/04/18 08:16 08/04/18 08:16 08/04/18 08:16 08/04/18 08:16 08/04/18 10:31 Oxygen Flow Rate (L/min) 2 Oxygen Delivery Method Nasal Cannula Weight: 85.1 kg Body Mass Index (BMI) 26.2 Finger Stick Blood Glucose 93 Intake and Output for Last 24 Hours 08/02/18 08/03/18 08/04/18 23:59 23:59 23:59 Intake Total 0 / 1900 Balance 1899 / 1899 General: Alert, Oriented x3, Cooperative HEENT: Atraumatic, PERRLA, EOMI Oral: Moist Mucosa, No Gingival or Mucosal Lesions/ Ulcerations Neck: Supple, No JVD, Trachea Midline Lungs: Clear to auscultation, No wheeze, No rales, Rhonchi Cardiovascular: Normal S1, Normal S2, Bradycardic Abdomen: Soft, Non Tender, Non-Distended Extremities: No clubbing, No cyanosis, Edema - Slight Skin: No rashes, No breakdown Musculoskeletal: No Tenderness to Palpation of Joints or Extremities, No Muscle Wasting Lymphatic: No Cervical, Supraclavicular, or Inguinal Adenopathy Neurological: Cranial nerves II-XII grossly intact, Neuro grossly intact Psych/Mental Status: Normal Affect, Appropriate, Alert and oriented to time, place, person, mood and affect - Patient slightly somnolent is that he did not sleep well Laboratory Results 08/04/18 06:10: WBC 11.6 H, RBC 4.05 L, Hgb 11.8 L, Hct 37.6 L, MCV 92.8, MCH 29.1, MCHC 31.4 L, RDW 17.1 H, RDW Differential 56.2 H, Plt Count 214, MPV 10.2, Immature Gran % (Auto) 0.300, Neut % (Auto) 79.0 H, Lymph % (Auto) 9.0 L, Long % (Auto) 9.1, Eos % (Auto) 2.5, Baso % (Auto) 0.1, Absolute Neuts (auto) 9.1 H, Absolute Lymphs (auto) 1.04, Total Counted Not Reportable 08/04/18 06:10: Sodium 139, Potassium 3.7, Chloride 102, Carbon Dioxide 29.0, Anion Gap 8, BUN 45 H, Creatinine 2.60 H, Estim Creat Clear Calc 22.93, Est GFR (MDRD) Af Amer 30 L, Est GFR (MDRD) Non-Af 25 L, BUN/Creatinine Ratio 17.3, Glucose 98, Calcium 8.4 L, Phosphorus 3.0, Magnesium 2.4, Total Bilirubin 1.10 H , AST 13 L, ALT 15 L, Alkaline Phosphatase 78, Total Protein 6.2 L, Albumin 2.7 L, Globulin 3.5, Albumin/Globulin Ratio 0.8 L Echocardiogram: MR#: [id number] Acct: [id number] Name: CHACHA HAIR Rep #: [id number] : 1935 83 From: Ruddy Lake MD Attending Dr: Nicolas Guerrero MD Status: ADM PIERCE Ordering Dr: Cathie Suarez MD Date: 08/03/18 Location: [facility] Sex: M C Admitted: 08/02/18 [id number] ECHO^ECHOD^Echo Complete [id number] TAG_START Cardiovascular Services Echocardiogram [address] [place] [address] Ordering Physician: Cathie Suarez TAG_ENDED TAG_START Name: CHACHA HAIR Study Date: 08/03/2018 08:41 AM BP: 162/57 mmHg Patient Location: [facility]^[id number] BSA: 2.0 m2 : 1935 Gender: Male Height: 71 in Age: 83 yrs Ethnicity: C Weight: 187 lb History: AFIB, Pacemaker, Former smoker, HTN TAG_ENDED Reason For Study: EMBOLI Procedure This was a 2D Doppler, Color Flow transthoracic echocardiogram. Exam performed portable in patient room. Left Ventricle Moderately dilated left ventricle. The estimated ejection fraction is 30 %. Stage 2 diastolic dysfunction. No regional wall motion abnormalities noted. TAG_START TAG_ENDED Right Ventricle Moderately dilated right ventricle. ICD or pacer leads identified within the right ventricle. Mild global right ventricular systolic dysfunction. Atria The left atrium is moderately enlarged. Normal right atrium. ICD or pacer leads identified within the right atrium. Normal atrial septum. Bubble contrast study negative for right to left interatrial shunt. Mitral Valve Mild diffuse mitral valve thickening. Mild mitral annular calcification extending into the posterior leaflet. Mild (1+) mitral valve insufficiency. Tricuspid Valve Normal tricuspid valve. Moderate (2+) tricuspid valve insufficiency. Right ventricular systolic pressure estimated to be 68 mmHg. Severe pulmonary hypertension. Aortic Valve Trisinus/trileaflet aortic valve. Mild diffuse aortic valve thickening. Mild restriction of the aortic valve. Mild aortic stenosis. Peak aortic valve gradient 14 mmHg. Mean aortic valve gradient 9 mmHg. Trivial aortic valve insufficiency. Pulmonic Valve Normal pulmonic valve. Trivial pulmonic valve insufficiency. Great Vessels Normal aortic root. Normal arch. Normal inferior vena cava. Inferior vena cava collapse with sniff. Pericardium/Pleural No pericardial effusion. Medication Performed a rapid injection of agitated mix of 9 cc saline and 1cc air to assess for atrial septal defect. Bubble study (x 3 ) was indeterminate. MMode/2D Measurements & Calculations IVSd: 1.2 cm LVIDd: 5.0 cm FS: 21.0 % LVIDs: 4.0 cm LVPWd: 1.4 cm Ao root diam: 4.1 cm LVAd ap4: 40.4 cm2 SV(MOD-sp4): 74.4 ml LA dimension: 5.0 cm EDV(MOD-sp4): 149.6 ml EDV(sp4-el): 161.2 ml LVAs ap4: 25.7 cm2 ESV(MOD-sp4): 75.2 ml ESV(sp4-el): 77.6 ml EF(MOD-sp4): 49.7 % EF(sp4-el): 51.8 % SV(sp4-el): 83.6 ml Doppler Measurements & Calculations MV E max robby: 66.6 cm/sec MV V2 max: 94.8 cm/sec MV dec time: 0.21 sec MV A max robby: 45.9 cm/sec MV max P.6 mmHg MV E/A: 1.5 MV V2 mean: 41.6 cm/sec MV mean P.86 mmHg MV V2 VTI: 25.3 cm Ao V2 max: 187.6 cm/sec AI max robby: 381.6 cm/sec LV V1 max P.0 mmHg Ao max P.1 mmHg AI max P.4 mmHg LV V1 mean P.6 mmHg Ao V2 mean: 133.0 cm/sec AI dec slope: 249.5 cm/sec2 LV V1 max: 86.9 cm/sec Ao mean P.9 mmHg AI P1/2t: 448.0 msec LV V1 mean: 60.7 cm/sec Ao V2 VTI: 36.6 cm LV V1 VTI: 19.6 cm PA V2 max: 144.7 cm/sec PI end-d robby: 133.5 cm/sec TR max robby: 394.7 cm/sec TR max P.9 mmHg Pediatric Measurements & Calculations Lat Peak E' Robby: 9.1 cm/sec Med Peak E' Robby: 3.9 cm/sec Interpretation Summary Moderately dilated left ventricle. The estimated ejection fraction is 30 %. Stage 2 diastolic dysfunction. Moderately dilated right ventricle. Mild global right ventricular systolic dysfunction. The left atrium is moderately enlarged. Moderate (2+) tricuspid valve insufficiency. Right ventricular systolic pressure estimated to be 68 mmHg. Severe pulmonary hypertension. Bubble contrast study negative for right to left interatrial shunt. Possible accessory chordae tendonae seen in LV of no clinical significance. TAG_START TAG_ENDED Ordering Physician: Cathie Suarez Referring Physician: BENEDICT HENRIQUEZ Performed By: Meggan Blackwell, FRANCOISE, RVT 08/03/18 1301 Date Ruddy Lake MD CC: Benedict Henriquez MD; Cathie Suarez MD; Nicolas Guerrero MD ~ Date Dictated: 08/03/1841 Date Transcribed: 08/03/181300 Data Integrity Specialist: Signed Carotid duplex: MR#: [id number] Acct: [id number] Name: CHACHA HAIR Rep #: [id number] : 1935 83 From: Ellis Wing MD Attending Dr: Nicolas Guerrero MD Status: ADM PIERCE Ordering Dr: Nicolas Guerrero MD Date: 08/03/18 Location: [facility] Sex: M C Admitted: 08/02/18 [id number] VL^CDU^Carotid Duplex Ultrasound [id number] [facility] Carotid Duplex Ultrasound [address] [place], [place] [address] Ordering Physician: Nicolas Guerrero TAG_ENDED TAG_START Name: CHACHA HAIR Study Date: 08/03/2018 12:51 PM Patient Location: [facility]^[id number] : 1935 Gender: Male Age: 83 yrs Ethnicity: C TAG_ENDED Reason For Study: TIA Rt. Velocities/BP Lt. Velocities/BP Prox CCA 63.1/7.01 cm/sec. Prox CCA 90.3/5.86 cm/sec. Mid CCA 57.5/8.79 cm/sec. Mid CCA 65.7/8.79 cm/sec. Dist CCA 91.5/7.04 cm/sec. Dist CCA 56.3/8.21 cm/sec. Prox ICA 140/16.7 cm/sec. Prox ICA 58/8.21 cm/sec. Mid ICA 125/22.6 cm/sec. Mid ICA 67.5/11.8 cm/sec. Dist ICA 95.1/14.1 cm/sec. Dist ICA 94.4/14.1 cm/sec. Rt. ICA/CCA = 2.22. Lt. ICA/CCA = 1.44. Prox ECA 142 cm/sec. Prox ECA 106 cm/sec. Rt. Vert. 35/7.86 cm/sec. Lt. Vert. 86.2/9.38 cm/sec. Right Extracranial There is intimal thickening but no significant atherosclerotic plaque noted in the right common carotid artery. There is heterogeneous, irregular atherosclerotic plaque noted in the right internal carotid artery. There is intimal thickening but no significant atherosclerotic plaque noted in the right external carotid artery. Antegrade flow is noted in the right vertebral artery. There is heterogeneous, smooth atherosclerotic plaque noted in the right bulb. Left Extracranial There is intimal thickening but no significant atherosclerotic plaque noted in the left common carotid artery. There is heterogeneous, irregular atherosclerotic plaque noted in the left internal carotid artery. There is intimal thickening but no significant atherosclerotic plaque noted in the left external carotid artery. Antegrade flow is noted in the left vertebral artery. Procedure Carotid Duplex [id number]. Exam performed portable in patient room. Interpretation Summary Soft plague at the proximal right internal carotid with 50-69% stenosis. Minimal plague at the proximal left internal carotid with <50% stenosis. Mild disease right external carotid Normal flow left external carotid Patent and antegrade vertebrals bilaterally TAG_START TAG_ENDED Ordering Physician: Nicolas Guerrero Referring Physician: Benedict Henriquez Performed By: Priti Martin RVT and Student 08/03/18 1601 Date Ellis Wing MD CC: Benedict Henriquez MD; Nicolas Guerrero MD ~ Date Dictated: 08/03/18 1251 Date Transcribed: 08/03/18 1601 Data Integrity Specialist: Signed CT of the brain: STUDY: CT BRAIN WITHOUT CONTRAST REASON FOR EXAM: Male, 83 years old. 48 hour follow-up after expressive aphasia resolution. RADIATION DOSAGE (If Supplied By Facility): CTDIvol = ( 60.81 ) mGy, DLP = ( 1089.89 ) mGycm TECHNIQUE: Transaxial CT imaging of the brain was performed without administration of intravenous contrast material. Multiplanar reformations are submitted for interpretation. Individualized dose optimization techniques were used for this CT. COMPARISON: None. FINDINGS: Normal soft tissue structures. Normal calvarium. There is mild cerebral atrophy with widening of the extra-axial spaces and ventricular dilatation. There are areas of decreased attenuation within the white matter tracts of the supratentorial brain, consistent with microvascular disease changes. Normal basal ganglia and thalami. Normal brainstem. There is mild cerebellar atrophy. There is no intracranial hemorrhage. There is moderate atherosclerotic calcification of the intracranial arteries. There are mucous retention cysts within bilateral maxillary sinuses. CT/Brain/Head without Contrast IMPRESSION: 1. Chronic involutional changes of the brain. 2. No CT evidence of acute intracranial hemorrhage. Electronically Signed: Jossy Trujillo MD at 7:47 EDT , Service support , CC: Benedict Henriquez MD; Nicolas Guerrero MD ~ Data Integrity Specialist: Signed Current Medications Allopurinol (Zyloprim) 100 mg PO DAILYCM [facility] Last Admin: 08/04/18 08:03 Dose: 100 mg Amiodarone HCl (Cordarone) 200 mg PO DAILY [facility] Last Admin: 08/04/18 08:04 Dose: 200 mg Aspirin (Aspirin, Baby) 81 mg PO DAILY@0800 [facility] Last Admin: 08/04/18 08:03 Dose: 81 mg Atorvastatin Calcium (Lipitor) 40 mg PO QHS [facility] Last Admin: 08/03/18 21:02 Dose: 40 mg Benzonatate (Tessalon Perle) 100 mg PO Q4H PRN PRN PRN Reason: COUGH Calcitriol (Rocaltrol) 0.25 mcg PO DAILY [facility] Last Admin: 08/04/18 08:05 Dose: 0.25 mcg Carvedilol (Coreg) 12.5 mg PO BID [facility] Last Admin: 08/04/18 08:04 Dose: 12.5 mg Cholecalciferol (Vitamin D) 2,000 unit PO DAILY [facility] Last Admin: 08/04/18 08:13 Dose: 2,000 unit Citalopram Hydrobromide (Celexa) 20 mg PO DAILY [facility] Last Admin: 08/04/18 08:04 Dose: 20 mg Cyanocobalamin (Vitamin B12) 2,000 mcg PO TuFr [facility] Last Admin: 08/04/18 08:11 Dose: 2,000 mcg Docusate Sodium (Colace) 100 mg PO BID [facility] Last Admin: 08/04/18 08:04 Dose: 100 mg Finasteride (Proscar) 5 mg PO DAILY [facility] Last Admin: 08/04/18 08:05 Dose: 5 mg Furosemide (Lasix) 40 mg PO DAILY [facility] Last Admin: 08/04/18 08:05 Dose: 40 mg Sodium Chloride () 250 mls @ 15 mls/hr IV .[id number] PRN PRN Reason: SALINE FLUSH Magnesium Hydroxide (Milk Of Magnesia) 30 ml PO DAILY PRN PRN PRN Reason: Constipation Oxycodone HCl (Oxyir) 5 mg PO Q4H PRN PRN PRN Reason: PAIN Last Admin: 08/04/18 08:03 Dose: 5 mg Pantoprazole Sodium (Protonix) 40 mg PO DAILY [facility] Last Admin: 08/04/18 08:05 Dose: 40 mg Polyethylene Glycol (Miralax) 17 gm PO DAILY [facility] Last Admin: 08/04/18 08:05 Dose: 17 gm Sodium Chloride () 5 - 30 ml IV UD PRN PRN Reason: SALINE FLUSH Last Admin: 08/03/18 03:54 Dose: 10 ml Tolterodine Tartrate (Detrol La) 2 mg PO DAILY [facility] Last Admin: 08/04/18 08:04 Dose: 2 mg Medical Necessity - Tobacco Use Smoking Status: Former smoker Tobacco Use: Cigarettes Assessment/Plan All Active Problems TIA (transient ischemic attack) (Acute) Expressive aphasia (Acute) Patient is a 83-year-old man history of hypertension, rib fractures, atrial fibrillation, BPH with presenting with a history of expressive aphasia TIA NIHSS-0; aphasia had resolved. CT head was negative to; EKG showed no acute ST change, no pacemaker failure. Echo and carotids are nonacute, will repeat CT scan of the head as patient and cannot get MRI PT and OT to evaluate patient neurology on consulted. Will continue aspirin and statin. Has been taken off of anticoagulation due to internal bleeding in the past with rib fracture and is currently at a high fall risk. Hypertension: Resumed home medication much improved Chronic kidney disease: Patient probably has chronic kidney disease but does not have any old laboratories to evaluate, monitor laboratories Rib fractures: had a fall 3 days ago at home. Chest x-ray showed multiple right rib fractures with small pleural effusion. Percocet for pain. Fall precautions. continue aspirin and use incentive spirometry repeat chest x-ray to make sure that there is no further progression of pleural effusion. Afib: on cavedilol and amiodarone. Will hold Xarelto in light of frequent falls. 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 Depression: on celexa DVT prophylaxis: SCDs; no anticoagulation o/a of frequent falls CODE STATUS: Full code Diets cardiac 1500 fluid restriction Disposition patient will be discharged once PT OT and any durable medical equipment/oxygen gotten for the patient. Chart is dictated with hook and eye sewing machine operator software. Errors may occur in dictation that may change providers meaning. This note was generated with [employer] dictation software. It may contain incorrect words, spelling, and punctuation that were not noted in checking the note before signing. Code Visit Inpatient E&M: 24098 Disch Hosp
== END 2018-08-04 14:49 | disposition home or self-care (01) | DRG 69 ==
LOC: ED 17:47 → PCU 18:44
PROVIDERS: Admitting Provider Student in an Organized Health Care Education/Training Program; Emergency Provider Emergency Medicine; Family Provider Family Medicine; PCP Family Medicine; Visit Provider Internal Medicine
DX: G45.9 Transient cerebral ischemic attack, unspecified (principal); S22.41XA Multiple fractures of ribs, right side, initial encounter for closed fracture; I13.0 Hypertensive heart and chronic kidney disease with heart failure and stage 1 through stage 4 chronic kidney disease, or unspecified chronic kidney disease; I50.22 Chronic systolic (congestive) heart failure; W01.0XXA Fall on same level from slipping, tripping and stumbling without subsequent striking against object, initial encounter; Y92.009 Unspecified place in unspecified non-institutional (private) residence as the place of occurrence of the external cause; N40.0 Benign prostatic hyperplasia without lower urinary tract symptoms; F32.9 Major depressive disorder, single episode, unspecified; I48.91 Unspecified atrial fibrillation; N18.9 Chronic kidney disease, unspecified
CPT/HCPCS: 36415; 70450; 71045; 80048; 80053; 80061; 82962; 83036; 83735; 84100; 84484; 85025; 85610; 85730; 92523; 93005; 93306; 93880; 97162; 97165; 97530; 99285; A4216; J2405